=== PATIENT | female | born 1985 | race Caucasian/White ===

== ENCOUNTER 2019-07-09 09:41 | Outpatient (RCR) | payer MEDICAID | END 2019-10-07 | disposition home or self-care (01) | LOC: CARD 09:41 | PROVIDERS: ATTEND Nurse Practitioner | DX: R00.0 Tachycardia, unspecified (principal) | CPT/HCPCS: 93270 ==

== ENCOUNTER 2020-07-07 07:46 | Emergency (ER) | payer MEDICAID ==
[~2020-07-07] VITALS: Ht 162.6 cm; Wt 133.4 kg
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
[2020-07-07 08:43] LABS: CLARITY,URINE CLEAR; COLOR,URINE YELLOW; GLUCOSE, URINE (UA) NEGATIVE (NEGATIVE); PROTEIN,URINE TRACE (NEGATIVE)
[2020-07-07 08:44] LABS: BILIRUBIN,URINE NEGATIVE (NEGATIVE); CALCIUM OXALATE CRYSTALS,UR FEW /LPF; KETONES,URINE TRACE (NEGATIVE); LEUKOCYTE ESTERASE ,URINE NEGATIVE (NEGATIVE); NITRITE,URINE NEGATIVE (NEGATIVE)
[2020-07-07] MEDS ORDERED: ACETAMINOPHEN 500 MG TAB (TYLENOL) PO STA (08:48)
[2020-07-07 08:49] LABS: AMPHETAMINE SCREEN, URINE POSITIVE (NEGATIVE); BARBITURATE SCREEN URINE NEGATIVE (NEGATIVE); BENZODIAZEPINES SCREEN URINE POSITIVE (NEGATIVE); CANNABINOID SCREEN, URINE POSITIVE (NEGATIVE); COCAINE SCREEN URINE NEGATIVE (NEGATIVE); METHADONE STAT NEGATIVE (NEGATIVE); METHAMPHETAMINE SCREEN URINE S NEGATIVE (NEGATIVE); OPIATE SCREEN URINE NEGATIVE (NEGATIVE); OXYCODONE STAT POSITIVE (NEGATIVE); PROPOXYPHENE STAT NEGATIVE (NEGATIVE); TRICYCLIC ANTIDEPRESSANTS SCRE NEGATIVE (NEGATIVE)
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
[2020-07-07] MEDS ORDERED: CYCL10TA9 PO (10:08)
[2020-07-07 10:12] VITALS: BP 119/85
== END 2020-07-07 10:12 | disposition home or self-care (01) ==
LOC: EDUNIT# 07:46 → ER FS 07:47
DX: S06.0X0A Concussion without loss of consciousness, initial encounter (principal); S00.03XA Contusion of scalp, initial encounter; S60.221A Contusion of right hand, initial encounter; S00.83XA Contusion of other part of head, initial encounter; F17.210 Nicotine dependence, cigarettes, uncomplicated; Z88.5 Allergy status to narcotic agent; Z88.2 Allergy status to sulfonamides; Y04.8XXA Assault by other bodily force, initial encounter
CPT/HCPCS: 70450; 70486; 72125; 73060; 73090; 73130; 80306; 81000; 84703

== ENCOUNTER 2020-07-20 08:34 | Emergency (ER) | payer MEDICAID ==
[~2020-07-20] VITALS: Ht 162 cm; Wt 110.0 kg
[~2020-07-20 08:34] MED LIST: CYCL10TA9 PO
[2020-07-20 08:40] VITALS: BP 147/91
[2020-07-20] MEDS ORDERED: CETI10TA49 PO (08:56)
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
== END 2020-07-20 09:00 | disposition home or self-care (01) ==
LOC: EDUNIT# 08:34 → ER FS 08:37
DX: J02.9 Acute pharyngitis, unspecified (principal); F17.210 Nicotine dependence, cigarettes, uncomplicated; Z88.5 Allergy status to narcotic agent; Z88.2 Allergy status to sulfonamides
CPT/HCPCS: 99283

== ENCOUNTER 2020-08-06 06:37 | Emergency (ER) | payer MEDICAID ==
[~2020-08-06] VITALS: Ht 162.5 cm; Wt 110.1 kg
[~2020-08-06 06:37] MED LIST changes: +CETI10TA49 PO
[2020-08-06 06:49] VITALS: BP 152/72
--- NOTE | 2020-08-06 06:52 | ED Integumentary General ---
General Chief Complaint: Skin/Wound Problems Stated Complaint: LEFT LEG SWELLING Source: patient Exam Limitations: no limitations History of Present Illness Date Seen by Provider: Aug 06, 2020 Time Seen by Provider: 06:45 Initial Comments Fina is a 34-year-old female who presents to the emergency room today with a chief complaint of some swelling to her left lower extremity. Patient states that it has been going on for 2 or 3 days. She states that she was in [place] days ago and got a lot of "bug bites" to her lower extremities. She states she has been running a fever for the last 24 hours. She states she has had a mild cough for the last day. Denies any nasal congestion, earache, sore throat. Denies any coronavirus contacts. Patient denies any abdominal pain, burning with urination, diarrhea. She is primarily concerned about an area of swelling to the left anterior omalley. She denies any trauma to this area, falls. Patient is noted to have a 102 temp with a heart rate of 125. She adamantly declines any placement of IV, IV fluids or other major work-up. Patient states she took one of her left over antibiotics, she cannot remember what it was, earlier in the week. Patient states that she does have a history of methamphetamine use last was yesterday. Repeatedly complains that her leg "hurts". All other review of systems reviewed and negative except as stated above. Severity: moderate Location: extremities Possible Cause: insect bite Associated Symptoms: fever Allergies and Home Medications Allergies Coded Allergies: hydrocodone (Verified Allergy, Intermediate, Nausea, 07/07/20) Sulfa (Sulfonamide Antibiotics) (Verified Allergy, Unknown, Rash, 07/07/20) Home Medications Cephalexin 500 Mg Tablet, 500 MG PO QID Prescribed by: OSCAR MART on 08/06/20 0701 Cetirizine HCl 10 Mg Tablet, 10 MG PO DAILY Prescribed by: JAKE LAZCANO on 07/20/20 0856 Patient Home Medication List Home Medication List Reviewed: Yes Review of Systems Review of Systems Constitutional: chills, fever EENTM: no symptoms reported Respiratory: cough Cardiovascular: no symptoms reported Gastrointestinal: no symptoms reported, abdominal pain Genitourinary: no symptoms reported Musculoskeletal: other (leg pain and swelling) Skin: rash Psychiatric/Neurological: Anxiety All Other Systems Reviewed Negative Unless Noted: Yes Past Aqtxjax-Zhminf-Ojmfrb Hx Patient Social History Alcohol Beverage of Choice: Rum Drug of Choice: methamphetamine, marijuana Type Used: Cigarettes 2nd Hand Smoke Exposure: Yes Recent Foreign Travel: No Contact w/Someone Who Travel: No Recent Hopitalizations: No Seasonal Allergies Seasonal Allergies: No Past Medical History Surgeries: Yes Adenoidectomy, Tonsillectomy Respiratory: No Cardiac: No Neurological: No Reproductive Disorders: Yes Female Reproductive Disorders: Polycystic Ovarian Dis Genitourinary: No Gastrointestinal: No Musculoskeletal: No Endocrine: No HEENT: No Cancer: No Psychosocial: No Integumentary: No Blood Disorders: No Physical Exam Vital Signs Vital Signs - First Documented 08/06/20 06:49 Temp 39.2 Pulse 130 Resp 20 B/P (MAP) 152/72 (98) Pulse Ox 100 O2 Delivery Room Air Capillary Refill : General Appearance: WD/WN, mild distress HEENT: PERRL/EOMI Neck: full range of motion Cardiovascular: regular rate, rhythm, no murmur, tachycardia Respiratory: lungs clear, normal breath sounds, no respiratory distress, no accessory muscle use Gastrointestinal: normal bowel sounds, non tender, soft Extremities: normal range of motion, other (Patient has an area of contusion mid left omalley. Mildly swollen, patient has a significant number of lesions to the bilateral lower extremities consistent with insect bites. A few have mild amount of surrounding erythema. No fluctuance, no drainage noted. They are tender to touch.) Skin: normal color, diaphoresis, rash (as above, multiple areas that are excoriated to the bilateral upper extremities as well.. Purulent bases with surrounding erythema, largest diameter about 1.5cm. No active drainage noted.) Progress/Results/Core Measures Results/Orders My Orders Orders - OSCAR MART MD Ibuprofen Tablet (Motrin Tablet) (08/06/20 07:00) Cephalexin Capsule (Keflex Capsule) (08/06/20 07:00) Medications Given in ED Current Medications Medications Dose Ordered Sig/Quentin Route Start Time Stop Time Status Last Admin Dose Admin Ibuprofen 800 mg ONCE ONCE PO 08/06/20 07:00 08/06/20 07:01 DC 08/06/20 06:56 800 MG Vital Signs/I&O 08/06/20 06:49 Temp 39.2 Pulse 130 Resp 20 B/P (MAP) 152/72 (98) Pulse Ox 100 O2 Delivery Room Air Progress Progress Note : Time: 06:55 Progress Note 34-year-old female presents to the emergency room today with a chief complaint of swelling to her left lower omalley area. Patient denies any trauma. Evaluation today includes a physical exam. Patient endorses methamphetamine abuse. Her last use was yesterday she states. Patient has significant numbers of bug bites to her bilateral lower extremities. Some of these are erythematous. mild cellulitic changes are noted. Patient is quite tachycardic and febrile here in the emergency department. She declines any IV placement or IV fluids. Patient is advised it would be the quickest way to make her feel better and again she declines. She is treated here in the emergency department with 800 mg of ibuprofen and given Keflex p.o. She will be given a prescription for some Keflex and advised to take this until it is done. She verbalizes understanding, all questions are sought and answered and she is stable for discharge. Departure Impression Primary Impression: Fever Qualified Codes: R50.81 - Fever presenting with conditions classified elsewhere Additional Impression: Cellulitis of leg, left Disposition: 01 HOME, SELF-CARE Condition: Stable Departure-Patient Inst. Decision time for Depature: 06:58 Referrals: [facility] (PCP) Primary Care Physician JENSEN BAUM (Family) Primary Care Physician Patient Instructions: Bacterial Folliculitis (DC) Add. Discharge Instructions: Try not to scratch on the wounds of your legs. Take the antibiotics 4 times a day, until they are all gone. Use over the counter ibuprofen or tylenol as needed for pain and fever. Alternate every 4 to 6 hours. Return to the Emergency Department for any worsening symptoms, increased redness, swelling or pain. I have sent your prescription to the [facility]. It should be picked up today. All discharge instructions reviewed with patient and/or family. Voiced understanding. Scripts Cephalexin (Cephalexin) 500 Mg Tablet 500 MG PO QID, #40 TAB 0 Refills Prov: OSCAR MART MD 08/06/20 OSCAR MART MD Aug 06, 2020 06:52
[2020-08-06] MEDS ORDERED: CEPHALEXIN 250 MG (KEFLEX) CAP PO ONE (07:00)
[2020-08-06] MEDS ORDERED: IBUPROFEN 800 MG (MOTRIN) TAB PO ONE (07:00)
[2020-08-06] MEDS ORDERED: CEPH500T PO (07:01)
== END 2020-08-06 07:10 | disposition home or self-care (01) ==
LOC: EDUNIT# 06:37 → ER FS 06:40
DX: S80.861A Insect bite (nonvenomous), right lower leg, initial encounter (principal); S80.862A Insect bite (nonvenomous), left lower leg, initial encounter; L03.116 Cellulitis of left lower limb; R50.9 Fever, unspecified; R05 Cough; Z88.2 Allergy status to sulfonamides; Z88.5 Allergy status to narcotic agent; Z77.22 Contact with and (suspected) exposure to environmental tobacco smoke (acute) (chronic); W57.XXXA Bitten or stung by nonvenomous insect and other nonvenomous arthropods, initial encounter
CPT/HCPCS: 99283

== ENCOUNTER 2020-08-08 06:57 | Emergency (ER) | payer MEDICAID ==
[~2020-08-08] VITALS: Ht 162.5 cm; Wt 109.0 kg
[~2020-08-08 06:57] MED LIST changes: +CEPH500T PO
[2020-08-08] MEDS ORDERED: NS IV 1000 ML 1,000 ML IV STA (07:40)
[2020-08-08] MEDS ORDERED: ONDANSETRON 4 MG/2 ML (SDV) Z0FRAN IVP ONE (07:45)
[2020-08-08] MEDS ORDERED: KETOROLAC 60 MG/2 ML VIAL IV ONE (07:45)
[2020-08-08] MEDS ORDERED: VANCOMYCIN INJECTION 1,000 MG in NS (IVPB) 250 ML IV ONE (07:45)
--- NOTE | 2020-08-08 07:47 | ED Integumentary General ---
General Chief Complaint: Skin/Wound Problems Stated Complaint: (L) LEG PAIN Nursing Triage Note: Patient presents POV to ED limping reporting increased pain and redness in LLE. Pt is on Cephalexin from ED visit 08/06/20 Source: patient, RN/MD, RN notes reviewed, old records Exam Limitations: no limitations History of Present Illness Date Seen by Provider: Aug 08, 2020 Time Seen by Provider: 07:20 Initial Comments This patient is a 34-year-old female presents to the emergency department complaining of redness and swelling to the left lower leg. Patient was seen just a few days ago in the emergency department complaining of sores all over body was diagnosed with folliculitis given a prescription for Keflex. Patient states that redness and swelling to her left leg is Worse since then and now having pain. Patient has multiple lesions throughout her skin extending from her lower extremities all interfaces around her mouth and lips. Discussed at length with patient about history she admits that she uses methamphetamine quite often this consistent with the type of lesions that she has on her skin. We will do medical evaluation treatment is needed. We'll give patient an IV and give her her vancomycin IV. Timing/Duration: getting worse, changing over time Severity: moderate Location: face, torso, hands, extremities Possible Cause: other Associated Symptoms: blisters, fever Allergies and Home Medications Allergies Coded Allergies: hydrocodone (Verified Allergy, Intermediate, Nausea, 07/07/20) Sulfa (Sulfonamide Antibiotics) (Verified Allergy, Unknown, Rash, 07/07/20) Home Medications Cephalexin 500 Mg Tablet, 500 MG PO QID Prescribed by: OSCAR MART on 08/06/20 0701 Cetirizine HCl 10 Mg Tablet, 10 MG PO DAILY Prescribed by: JAKE LAZCANO on 07/20/20 0856 Patient Home Medication List Home Medication List Reviewed: Yes Review of Systems Review of Systems Constitutional: No no symptoms reported, No see HPI, No chills, No diaphoresis, No dizziness; fever; No malaise, No weakness, No weight gain, No weight loss, No other EENTM: mouth pain, mouth swelling, other Respiratory: No no symptoms reported, No see HPI, No cough, No dyspnea on exertion, No hemoptysis, No orthopnea, No phlegm, No short of breath, No s tridor, No wheezing, No other Cardiovascular: No no symptoms reported, No see HPI, No chest pain, No edema, No Hx of Intervention, No palpitations, No syncope, No vascular heart diseas, No other Gastrointestinal: No RUQ, No LUQ, No RLQ, No LLQ, No no symptoms reported, No see HPI, No abdominal pain, No constipation, No diarrhea, No dysphagia, No hematemesis, No heartburn, No jaundice, No loss of appetite, No melena, No nausea, No vomiting, No other Musculoskeletal: see HPI, joint swelling, muscle pain Skin: change in color, lesions All Other Systems Reviewed Negative Unless Noted: Yes Past Tkdzopu-Rsigeh-Duuypk Hx Patient Social History Alcohol Beverage of Choice: Rum Drug of Choice: Meth Type Used: Cigarettes 2nd Hand Smoke Exposure: Yes Recent Foreign Travel: No Contact w/Someone Who Travel: No Recent Infectious Disease Expo: No Recent Hopitalizations: No Physical Abuse: No Sexual Abuse: No Mistreated: No Fear: No Seasonal Allergies Seasonal Allergies: No Past Medical History Surgeries: Yes Adenoidectomy, Tonsillectomy Respiratory: No Cardiac: No Neurological: No Reproductive Disorders: Yes Female Reproductive Disorders: Polycystic Ovarian Dis Genitourinary: No Gastrointestinal: No Musculoskeletal: No Endocrine: No HEENT: No Cancer: No Psychosocial: No Integumentary: No Blood Disorders: No Physical Exam Vital Signs Vital Signs - First Documented 08/08/20 07:15 Temp 36.9 Pulse 108 Resp 20 B/P (MAP) 120/69 (86) Pulse Ox 99 O2 Delivery Room Air Capillary Refill : Less Than 3 Seconds General Appearance: WD/WN, no apparent distress HEENT: PERRL/EOMI, normal ENT inspection, TMs normal, other (lesions to the lips similar to use to medical tightness versus fever blisters. But has similar lesions throughout the skin the face consistent with methamphetamine) Neck: non-tender, full range of motion, supple, normal inspection Cardiovascular: normal peripheral pulses, regular rate, rhythm, no edema, no gallop, no JVD, no murmur Respiratory: chest non-tender, lungs clear, normal breath sounds, no respiratory distress, no accessory muscle use Gastrointestinal: normal bowel sounds, non tender, soft, no organomegaly, no pulsatile mass Extremities: normal range of motion, no calf tenderness, normal capillary refill, pelvis stable, inflammation, swelling, other (lesions to both lower extremities bilaterally however left lower leg redness and swelling consistent with cellulitis.) Skin: warm/dry Lymphatic: no adenopathy Progress/Results/Core Measures Results/Orders Lab Results Laboratory Tests Test 08/08/20 07:53 08/08/20 08:03 Range/Units Urine Color BROWN H Urine Clarity SL CLOUDY Urine pH 6.5 5-9 Urine Specific [place] 1.025 H 1.016-1.022 Urine Protein 1+ H NEGATIVE Urine Glucose (UA) TRACE H NEGATIVE Urine Ketones TRACE H NEGATIVE Urine Nitrite NEGATIVE NEGATIVE Urine Bilirubin 2+ H NEGATIVE Urine Urobilinogen 4.0 < = 1.0 MG/DL Urine Leukocyte Esterase TRACE H NEGATIVE Urine RBC (Auto) NEGATIVE NEGATIVE Urine RBC NONE /HPF Urine WBC 5-10 H /HPF Urine Squamous Epithelial Cells 10-25 H /HPF Urine Crystals NONE /LPF Urine Bacteria FEW H /HPF Urine Casts NONE /LPF Urine Mucus SMALL H /LPF Urine Yeast FEW H /HPF Urine Culture Indicated YES Urine Opiates Screen NEGATIVE NEGATIVE Urine Oxycodone Screen NEGATIVE NEGATIVE Urine Methadone Screen NEGATIVE NEGATIVE Urine Propoxyphene Screen NEGATIVE NEGATIVE Urine Barbiturates Screen NEGATIVE NEGATIVE Ur Tricyclic Antidepressants Screen NEGATIVE NEGATIVE Urine Phencyclidine Screen NEGATIVE NEGATIVE Urine Amphetamines Screen POSITIVE H NEGATIVE Urine Methamphetamines Screen POSITIVE H NEGATIVE Urine Benzodiazepines Screen POSITIVE H NEGATIVE Urine Cocaine Screen NEGATIVE NEGATIVE Urine Cannabinoids Screen POSITIVE H NEGATIVE White Blood Count 13.2 H 4.3-11.0 10^3/uL Red Blood Count 4.73 4.35-5.85 10^6/uL Hemoglobin 13.1 11.5-16.0 G/DL Hematocrit 41 35-52 % Mean Corpuscular Volume 86 80-99 FL Mean Corpuscular Hemoglobin 28 25-34 PG Mean Corpuscular Hemoglobin Concent 32 32-36 G/DL Red Cell Distribution Width 13.4 10.0-14.5 % Platelet Count 310 130-400 10^3/uL Mean Platelet Volume 9.4 7.4-10.4 FL Immature Granulocyte % (Auto) 0 % Neutrophils (%) (Auto) 84 H 42-75 % Lymphocytes (%) (Auto) 8 L 12-44 % Monocytes (%) (Auto) 7 0-12 % Eosinophils (%) (Auto) 1 0-10 % Basophils (%) (Auto) 0 0-10 % Neutrophils # (Auto) 11.0 H 1.8-7.8 X 10^3 Lymphocytes # (Auto) 1.1 1.0-4.0 X 10^3 Monocytes # (Auto) 0.9 0.0-1.0 X 10^3 Eosinophils # (Auto) 0.1 0.0-0.3 10^3/uL Basophils # (Auto) 0.0 0.0-0.1 10^3/uL Immature Granulocyte # (Auto) 0.1 0.0-0.1 10^3/uL My Orders Orders - BRITT NAVA MD Ed Iv/Invasive Line Start (08/08/20 07:40) Comprehensive Metabolic Panel (08/08/20 07:40) Cbc With Automated Diff (08/08/20 07:40) Drug Screen Stat (Urine) (08/08/20 07:40) Urinalysis (08/08/20 07:40) Lactic Acid Analyzer (08/08/20 07:40) Blood Culture (08/08/20 07:40) Ns Iv 1000 Ml (Sodium Chloride 0.9%) (08/08/20 07:40) Vancomycin Injection (Vancomycin Injecti (08/08/20 07:45) Ketorolac Injection (Toradol Injection) (08/08/20 07:45) Ondansetron Injection (Zofran Injectio (08/08/20 07:45) Urine Culture (08/08/20 07:53) Manual Differential (08/08/20 08:03) Blood Culture (08/08/20 08:13) Medications Given in ED Current Medications Medications Dose Ordered Sig/Quentin Route Start Time Stop Time Status Last Admin Dose Admin Ketorolac Tromethamine 15 mg ONCE ONCE IV 08/08/20 07:45 08/08/20 07:46 DC 08/08/20 08:14 15 MG Ondansetron HCl 4 mg ONCE ONCE IVP 08/08/20 07:45 08/08/20 07:46 DC 08/08/20 08:14 4 MG Vancomycin HCl 1000 mg/Sodium Chloride 250 ml @ 250 mls/hr ONCE ONCE IV 08/08/20 07:45 11 08:44 08/08/20 08:14 250 MLS/HR Vital Signs/I&O 11/10/20 07:15 Temp 36.9 Pulse 108 Resp 20 B/P (MAP) 120/69 (86) Pulse Ox 99 O2 Delivery Room Air Blood Pressure Mean: 86 Progress Progress Note : Time: 08:41 Progress Note Cellulitis the lower extremity has been outlined. Patient is received 1 g of vancomycin. We will change patient's antibiotics to clindamycin. Patient also be given Bactroban ointment. Patient is instructed to stop using methamphetamine. Patient states understanding. Encourage by mouth fluids. Stop using drugs. He medications as instructed. Follow-up with your PCP in 2-3 days. Departure Impression Primary Impression: Cellulitis Additional Impressions: Methamphetamine use disorder, moderate Folliculitis Disposition: 01 HOME, SELF-CARE Condition: Stable Departure-Patient Inst. Decision time for Depature: 08:42 Referrals: [facility]/ (PCP) Primary Care Physician JENSEN BAUM (Family) Primary Care Physician Patient Instructions: Cellulitis (Skin Infection), Adult (DC), Bacterial Folliculitis (DC), Meth Mouth Add. Discharge Instructions: Encourage by mouth fluids. Stop using drugs. He medications as instructed. Follow-up with your PCP in 2-3 days. All discharge instructions reviewed with patient and/or family. Voiced understanding. Scripts Mupirocin (Mupirocin) 22 Gm Oint...g. 22 GM TP TID, #1 TUBE 0 Refills Prov: BRITT NAVA MD 08/08/20 Clindamycin HCl (Clindamycin HCl) 150 Mg Capsule 150 MG PO QID, #40 CAP 0 Refills Prov: BRITT NAVA MD 08/08/20 BRITT NAVA MD Aug 08, 2020 07:47
[2020-08-08 08:09] LABS: AMPHETAMINE SCREEN, URINE POSITIVE (NEGATIVE); BARBITURATE SCREEN URINE NEGATIVE (NEGATIVE); BENZODIAZEPINES SCREEN URINE POSITIVE (NEGATIVE); CANNABINOID SCREEN, URINE POSITIVE (NEGATIVE); COCAINE SCREEN URINE NEGATIVE (NEGATIVE); METHADONE STAT NEGATIVE (NEGATIVE); METHAMPHETAMINE SCREEN URINE S POSITIVE (NEGATIVE); OPIATE SCREEN URINE NEGATIVE (NEGATIVE); OXYCODONE STAT NEGATIVE (NEGATIVE); PROPOXYPHENE STAT NEGATIVE (NEGATIVE); TRICYCLIC ANTIDEPRESSANTS SCRE NEGATIVE (NEGATIVE)
[2020-08-08 08:10] LABS: CLARITY,URINE SL CLOUDY; COLOR,URINE BROWN; GLUCOSE, URINE (UA) TRACE (NEGATIVE); KETONES,URINE TRACE (NEGATIVE); NITRITE,URINE NEGATIVE (NEGATIVE); PH,URINE 6.5 (5-9); PROTEIN,URINE 1+ (NEGATIVE)
[2020-08-08 08:11] LABS: BACTERIA,URINE FEW /HPF; BILIRUBIN,URINE 2+ (NEGATIVE); LEUKOCYTE ESTERASE ,URINE TRACE (NEGATIVE); YEAST,URINE FEW /HPF
--- NOTE | 2020-08-08 08:15 | NUR ---
Outlined area of cellulitis with skin marker.
[2020-08-08 08:21] LABS: BASOPHILS % (AUTO) 0 % (0-10); EOSINOPHILS # (AUTO) 0.1 10^3/uL (0.0-0.3); EOSINOPHILS % (AUTO) 1 % (0-10); HEMATOCRIT 41 % (35-52); HEMOGLOBIN 13.1 G/DL (11.5-16.0); LYMPHOCYTES # (AUTO) 1.1 X 10^3 (1.0-4.0); LYMPHOCYTES % (AUTO) 8 % (12-44); MEAN CORPUSCULAR HEMOGLOBIN 28 PG (25-34); MEAN CORPUSCULAR HGB CONC 32 G/DL (32-36); MEAN CORPUSCULAR VOLUME 86 FL (80-99); MEAN PLATELET VOLUME 9.4 FL (7.4-10.4); MONOCYTES # (AUTO) 0.9 X 10^3 (0.0-1.0); MONOCYTES % (AUTO) 7 % (0-12); NEUTROPHILS % (AUTO) 84 % (42-75); PLATELET COUNT 310 10^3/uL (130-400); WHITE BLOOD COUNT 13.2 10^3/uL (4.3-11.0)
[2020-08-08 08:43] LABS: CARBON DIOXIDE 23 MMOL/L (21-32); CHLORIDE 104 MMOL/L (98-107); POTASSIUM 3.3 MMOL/L (3.6-5.0); SODIUM 141 MMOL/L (135-145)
[2020-08-08 08:44] LABS: ALANINE AMINOTRANSFERASE 24 U/L (0-55); ALBUMIN 3.9 GM/DL (3.2-4.5); ALKALINE PHOSPHATASE 125 U/L (40-136); BILIRUBIN,TOTAL 0.4 MG/DL (0.1-1.0); BUN/CREATININE RATIO 13; CALCIUM 9.8 MG/DL (8.5-10.1); CREATININE SERUM 0.63 MG/DL (0.60-1.30); GFR ESTIMATED > 60; GLUCOSE 108 MG/DL (70-105); TOTAL PROTEIN 7.7 GM/DL (6.4-8.2)
[2020-08-08] MEDS ORDERED: CLIN150C17 PO (08:44)
[2020-08-08] MEDS ORDERED: MUPI22OI2 TP (08:44)
[2020-08-08 09:20] VITALS: BP 118/65
[2020-08-08 09:23] LABS: BAND NEUTROPHILS 11 %; BASOPHILS % (MANUAL) 0 %; EOSINOPHILS % (MANUAL) 0 %; LYMPHOCYTES % (MANUAL) 13 %; MONOCYTES % (MANUAL) 3 %; NEUTROPHILS % (MANUAL) 73 %; RBC MORPH NORMAL
== END 2020-08-08 09:20 | disposition home or self-care (01) ==
LOC: EDUNIT# 06:57 → ER FS 07:00
DX: L03.116 Cellulitis of left lower limb (principal); L73.9 Follicular disorder, unspecified; F15.90 Other stimulant use, unspecified, uncomplicated; Z77.22 Contact with and (suspected) exposure to environmental tobacco smoke (acute) (chronic); Z88.5 Allergy status to narcotic agent; Z88.2 Allergy status to sulfonamides
CPT/HCPCS: 36415; 80053; 80306; 81000; 83605; 85007; 85027; 87040; 87088

== ENCOUNTER 2020-08-11 18:16 | Inpatient (IN) | payer MEDICAID ==
[~2020-08-11] VITALS: Ht 162.6 cm; Wt 110.3 kg
[~2020-08-11 18:16] MED LIST changes: +CLIN150C17 PO; +MUPI22OI2 TP
--- NOTE | 2020-08-11 18:39 | ED General ---
General Chief Complaint: Lower Extremity Stated Complaint: LT LEG PAIN Nursing Triage Note: Patient reports she has been seen twice in the ED for cellulitis of her left lower leg. States she has been taking clindamycin since 08/08/20 but that her pain is not getting any better. Nursing Sepsis Screen: No Definite Risk History of Present Illness Date Seen by Provider: Aug 11, 2020 Time Seen by Provider: 18:39 Initial Comments Patient presenting to the emergency department for evaluation of wound to her left lower extremity that has been going on since approximately the sixth of this month as she was out in the [facility] and had some bug bites. She was seen in the emergency department 2 days later on the and prescribed Keflex as she was tachycardic and febrile but did not want any further workup or IV medications. She said the redness swelling and pain was worse and came back 2 days later and had evaluation and was given 1 dose of IV vancomycin and sent sachi e on clindamycin after having an elevated white blood cell count and lactic acid. She says that the pain is much worse now and she cannot tolerate the pain any longer. I looked at a picture of the outline of the wound on the and it appears that the cellulitis is receding inferiorly about possibly getting worse laterally and superiorly and also appears to be a more intense dark red at this time. She says that she does not do any IV drugs and did not inject in this area. She is quite anxious and keeps yelling about the amount of pain she is in. Allergies and Home Medications Allergies Coded Allergies: hydrocodone (Verified Allergy, Intermediate, Nausea, 07/07/20) Sulfa (Sulfonamide Antibiotics) (Verified Allergy, Unknown, Rash, 07/07/20) Home Medications Cephalexin 500 Mg Tablet, 500 MG PO QID Prescribed by: OSCAR MART on 08/06/20 0701 Cetirizine HCl 10 Mg Tablet, 10 MG PO DAILY Prescribed by: JAKE LAZCANO on 07/20/20 0856 Clindamycin HCl 150 Mg Capsule, 150 MG PO QID Prescribed by: BRITT NAVA on 08/08/20 0844 Mupirocin 22 Gm Oint...g., 22 GM TP TID Prescribed by: BRITT NAVA on 08/08/20 0844 Patient Home Medication List Home Medication List Reviewed: Yes Review of Systems Review of Systems Constitutional: no symptoms reported, fever EENTM: no symptoms reported Respiratory: no symptoms reported Cardiovascular: no symptoms reported Gastrointestinal: no symptoms reported Musculoskeletal: no symptoms reported Skin: other (pain, swelling, redness) Psychiatric/Neurological: No Symptoms Reported All Other Systems Reviewed Negative Unless Noted: Yes Past Phkczrh-Vrortu-Hjlbjt Hx Patient Social History Alcohol Use: Denies Use Number of Drinks Today: DD Alcohol Beverage of Choice: Rum Recreational Drug Use: Yes Drug of Choice: Meth Smoking Status: Current Everyday Smoker Type Used: Cigarettes 2nd Hand Smoke Exposure: Yes Recent Foreign Travel: No Contact w/Someone Who Travel: No Recent Infectious Disease Expo: No Recent Hopitalizations: No Physical Abuse: No Sexual Abuse: No Mistreated: No Fear: No Seasonal Allergies Seasonal Allergies: No Past Medical History Surgeries: Yes Adenoidectomy, Tonsillectomy Respiratory: No Cardiac: No Neurological: No Last Menstrual Period: Jul 11, 2020 Reproductive Disorders: Yes Female Reproductive Disorders: Polycystic Ovarian Dis Genitourinary: No Gastrointestinal: No Musculoskeletal: No Endocrine: No HEENT: No Cancer: No Psychosocial: No Integumentary: No Blood Disorders: No Physical Exam Vital Signs Vital Signs - First Documented 08/11/20 18:23 Temp 36.1 Pulse 131 Resp 20 B/P (MAP) 161/94 (116) Pulse Ox 97 O2 Delivery Room Air Capillary Refill : Less Than 3 Seconds Height, Weight, BMI Height: '" Weight: lbs. oz. kg; 41.00 BMI Method: General Appearance: No Apparent Distress, WD/WN HEENT: PERRL/EOMI Neck: Supple Respiratory: No Respiratory Distress Cardiovascular: Regular Rate, Rhythm Gastrointestinal: Non Tender, Soft Extremity: Normal Capillary Refill Neurologic/Psychiatric: Alert, Oriented x3 Skin: Other (erythema warmth and significant tenderness to palpation of the left lower extremity over the omalley and it goes laterally but is not circumferential. Anteriorly does feel as if there could be some induration but no definite fluid collection palpated.) Focused Exam Lactate Level 08/11/20 18:50: Lactic Acid Level 2.06*H Lactic Acid Level Laboratory Tests Test 08/11/20 18:50 Lactic Acid Level 2.06 MMOL/L (0.50-2.00) *H Progress/Results/Core Measures Suspected Sepsis Recent Fever Within 48 Hours: No Infection Criteria Present: Documented Infection New/Unexplained Altered Menta: No Sepsis Screen: No Definite Risk SIRS Temperature: Pulse: 131 Respiratory Rate: 20 Laboratory Tests 08/11/20 18:50: White Blood Count 12.8H Blood Pressure 161 /94 Mean: 116 08/11/20 18:50: Lactic Acid Level 2.06*H Laboratory Tests 08/11/20 18:50: Creatinine 0.61, Platelet Count 599H, Total Bilirubin 0.4 Results/Orders Lab Results Laboratory Tests Test 08/11/20 18:50 Range/Units White Blood Count 12.8 H 4.3-11.0 10^3/uL Red Blood Count 4.74 4.35-5.85 10^6/uL Hemoglobin 13.2 11.5-16.0 G/DL Hematocrit 40 35-52 % Mean Corpuscular Volume 85 80-99 FL Mean Corpuscular Hemoglobin 28 25-34 PG Mean Corpuscular Hemoglobin Concent 33 32-36 G/DL Red Cell Distribution Width 13.2 10.0-14.5 % Platelet Count 599 H 130-400 10^3/uL Mean Platelet Volume 9.0 7.4-10.4 FL Immature Granulocyte % (Auto) 1 % Neutrophils (%) (Auto) 79 H 42-75 % Lymphocytes (%) (Auto) 14 12-44 % Monocytes (%) (Auto) 6 0-12 % Eosinophils (%) (Auto) 0 0-10 % Basophils (%) (Auto) 0 0-10 % Neutrophils # (Auto) 10.2 H 1.8-7.8 X 10^3 Lymphocytes # (Auto) 1.7 1.0-4.0 X 10^3 Monocytes # (Auto) 0.8 0.0-1.0 X 10^3 Eosinophils # (Auto) 0.1 0.0-0.3 10^3/uL Basophils # (Auto) 0.0 0.0-0.1 10^3/uL Immature Granulocyte # (Auto) 0.1 0.0-0.1 10^3/uL Sodium Level 134 L 135-145 MMOL/L Potassium Level 3.5 L 3.6-5.0 MMOL/L Chloride Level 98 98-107 MMOL/L Carbon Dioxide Level 21 21-32 MMOL/L Anion Gap 15 H 5-14 MMOL/L Blood Urea Nitrogen 11 7-18 MG/DL Creatinine 0.61 0.60-1.30 MG/DL Estimat Glomerular Filtration Rate > 60 BUN/Creatinine Ratio 18 Glucose Level 186 H 70-105 MG/DL Lactic Acid Level 2.06 *H 0.50-2.00 MMOL/L Calcium Level 9.1 8.5-10.1 MG/DL Corrected Calcium 9.4 8.5-10.1 MG/DL Total Bilirubin 0.4 0.1-1.0 MG/DL Aspartate Amino Transf (AST/SGOT) 13 5-34 U/L Alanine Aminotransferase (ALT/SGPT) 17 0-55 U/L Alkaline Phosphatase 104 40-136 U/L Total Protein 8.3 H 6.4-8.2 GM/DL Albumin 3.6 3.2-4.5 GM/DL My Orders Orders - JOANNE MARCANO DO Cbc With Automated Diff (08/11/20 18:39) Comprehensive Metabolic Panel (08/11/20 18:39) Blood Culture (08/11/20 18:39) Lactic Acid Analyzer (08/11/20 18:39) Piperacillin Sodium/Tazobactam (Zosyn Vi (08/11/20 18:45) Vancomycin Injection (Vancomycin Injecti (08/11/20 18:45) Blood Culture (08/11/20 18:45) Medications Given in ED Current Medications Medications Dose Ordered Sig/Quentin Route Start Time Stop Time Status Last Admin Dose Admin Piperacillin Sod/ Tazobactam Sod 4.5 gm/Sodium Chloride 100 ml @ 200 mls/hr ONCE ONCE IV 08/11/20 18:45 08/11/20 19:14 DC 08/11/20 19:37 200 MLS/HR Vital Signs/I&O 08/11/20 18:23 Temp 36.1 Pulse 131 Resp 20 B/P (MAP) 161/94 (116) Pulse Ox 97 O2 Delivery Room Air Capillary Refill : Less Than 3 Seconds Blood Pressure Mean: 116 Progress Note : Progress Note I discussed doing an incision and drainage with the patient however she was relu cta to do so. I think this further imaging such as an MRI or ultrasound would be warranted however I cannot acquire those images here in this freestanding emergency department. Given she may be failing outpatient treatment will plan on starting IV antibiotics here and having her transferred to Issue. Patient meets sepsis criteria with tachycardia and leukocytosis and she does have mild like a stick acidosis as well but does not meet severe sepsis criteria. Given her failure of outpatient treatment will plan on admission for further observation and treatment. Patient accepted by Dr. Michele. Departure Impression Primary Impression: Cellulitis of leg, left Additional Impressions: Failure of outpatient treatment Sepsis Lactic acidosis Disposition: ADMITTED INPATIENT Condition: Improved Transfer Transfer Reason: Exceeds level of care Transfer Facility: [facility] Departure-Patient Inst. Referrals: [facility] (PCP) Primary Care Physician JENSEN BAUM (Family) Primary Care Physician JOANNE MARCANO DO Aug 11, 2020 18:39
[2020-08-11] MEDS ORDERED: PIPERACILLIN SODIUM/TAZOBACTAM 4.5 GM in NS (IVPB) 100 ML IV ONE (18:45)
[2020-08-11] MEDS ORDERED: VANCOMYCIN INJECTION 1,000 MG in NS (IVPB) 250 ML IV ONE (18:45)
[2020-08-11 19:11] LABS: BASOPHILS % (AUTO) 0 % (0-10); EOSINOPHILS % (AUTO) 0 % (0-10); HEMATOCRIT 40 % (35-52); HEMOGLOBIN 13.2 G/DL (11.5-16.0); LYMPHOCYTES % (AUTO) 14 % (12-44); MEAN CORPUSCULAR HEMOGLOBIN 28 PG (25-34); MEAN CORPUSCULAR HGB CONC 33 G/DL (32-36); MEAN CORPUSCULAR VOLUME 85 FL (80-99); MONOCYTES % (AUTO) 6 % (0-12); NEUTROPHILS # (AUTO) 10.2 X 10^3 (1.8-7.8); NEUTROPHILS % (AUTO) 79 % (42-75); PLATELET COUNT 599 10^3/uL (130-400); WHITE BLOOD COUNT 12.8 10^3/uL (4.3-11.0)
[2020-08-11 19:12] LABS: EOSINOPHILS # (AUTO) 0.1 10^3/uL (0.0-0.3); LYMPHOCYTES # (AUTO) 1.7 X 10^3 (1.0-4.0); MONOCYTES # (AUTO) 0.8 X 10^3 (0.0-1.0)
[2020-08-11 19:34] LABS: ALANINE AMINOTRANSFERASE 17 U/L (0-55); ALKALINE PHOSPHATASE 104 U/L (40-136); BILIRUBIN,TOTAL 0.4 MG/DL (0.1-1.0); BUN/CREATININE RATIO 18; CALCIUM 9.1 MG/DL (8.5-10.1); CARBON DIOXIDE 21 MMOL/L (21-32); CHLORIDE 98 MMOL/L (98-107); CREATININE SERUM 0.61 MG/DL (0.60-1.30); GFR ESTIMATED > 60; GLUCOSE 186 MG/DL (70-105); POTASSIUM 3.5 MMOL/L (3.6-5.0); SODIUM 134 MMOL/L (135-145); TOTAL PROTEIN 8.3 GM/DL (6.4-8.2)
[2020-08-11 19:35] LABS: ALBUMIN 3.6 GM/DL (3.2-4.5)
--- NOTE | 2020-08-11 19:43 | NUR ---
pt requesting warm blanket, resting on stretcher, no distress noted.
[2020-08-11] MEDS ORDERED: NS IV 1000 ML 1,000 ML IV SCH (21:00)
[2020-08-11 23:00] VITALS: BP 111/63
[2020-08-11] MEDS ORDERED: CATHETER FLUSH 10 ML SYR IV PRN (23:30)
[2020-08-11] MEDS ORDERED: ACETAMINOPHEN 325 MG TABLET PO PRN (23:30)
--- NOTE | 2020-08-11 23:30 | NUR ---
2202-THIS RN RECEIVED REPORT FROM [facility] AT [facility] 2300-PT ARRIVED [facility] JATINDER ESCOBAR admitted to room 406-1, with an admitting diagnosis of CELLULITIS, SEPSIS, on 08/11/20 from ED via [facility], accompanied by [facility].JATINDER ESCOBAR introduced to surroundings, call light, bed controls, phone, TV, temperature control, lights, meal times, smoking policy, visitor policy, side rail policy, bathrooms and showers. Patient Rights given to patient in the handbook. JATINDER ESCOBAR verbalizes understanding that [facility] is not responsible for the loss or damage to any personal effects or valuables that are kept in the patients possessions during their hospitalization. Patient and/or family were informed about the Rapid Response Team and its purpose.
[2020-08-12] MEDS: IBUPROFEN 800 MG (MOTRIN) TAB PO PRN ×3 (00:32→20:28)
[2020-08-12] MEDS ORDERED: PIPERACILLIN/TAZO 4.5 GM VIAL (ZOSYN) IV ONE (01:30)
[2020-08-12] MEDS ORDERED: NS (IVPB) 100 ML ONE (01:30)
[2020-08-12] MEDS: PIPERACILLIN/TAZO 4.5 GM/NS 100 ML IV SCH ×6 (01:42→16:32)
[2020-08-12 03:54] VITALS: BP 110/62
[2020-08-12 05:02] LABS: BASOPHILS % (AUTO) 0 % (0-10); EOSINOPHILS # (AUTO) 0.1 10^3/uL (0.0-0.3); EOSINOPHILS % (AUTO) 1 % (0-10); HEMATOCRIT 36 % (35-52); HEMOGLOBIN 11.2 g/dL (11.5-16.0); LYMPHOCYTES # (AUTO) 1.6 10^3/uL (1.0-4.0); LYMPHOCYTES % (AUTO) 20 % (12-44); MEAN CORPUSCULAR HEMOGLOBIN 27 pg (25-34); MEAN CORPUSCULAR HGB CONC 31 g/dL (32-36); MEAN CORPUSCULAR VOLUME 87 fL (80-99); MEAN PLATELET VOLUME 8.8 fL (9.0-12.2); MONOCYTES # (AUTO) 0.9 10^3/uL (0.0-1.0); MONOCYTES % (AUTO) 11 % (0-12); NEUTROPHILS # (AUTO) 5.5 10^3/uL (1.8-7.8); NEUTROPHILS % (AUTO) 68 % (42-75); PLATELET COUNT 385 10^3/uL (130-400)
[2020-08-12 05:15] LABS: ALBUMIN 3.2 GM/DL (3.2-4.5); CHLORIDE 103 MMOL/L (98-107); POTASSIUM 3.5 MMOL/L (3.6-5.0); SODIUM 138 MMOL/L (135-145)
[2020-08-12 05:16] LABS: CALCIUM 8.7 MG/DL (8.5-10.1)
[2020-08-12 05:17] LABS: GLUCOSE 96 MG/DL (70-105); TOTAL PROTEIN 7.1 GM/DL (6.4-8.2)
[2020-08-12 05:18] LABS: CARBON DIOXIDE 24 MMOL/L (21-32)
[2020-08-12 05:19] LABS: BILIRUBIN,TOTAL 0.4 MG/DL (0.1-1.0)
[2020-08-12 05:21] LABS: ALKALINE PHOSPHATASE 73 U/L (40-136); CREATININE SERUM 0.64 MG/DL (0.60-1.30); GFR ESTIMATED > 60
[2020-08-12 05:22] LABS: BUN/CREATININE RATIO 16
[2020-08-12 05:24] LABS: ALANINE AMINOTRANSFERASE 14 U/L (0-55)
[2020-08-12 05:34] LABS: VANCOMYCIN,TROUGH 3.8 UG/ML (10.0-20.0)
--- NOTE | 2020-08-12 07:31 | NUR ---
DR. DOE NOTIFIED OF CONSULT
--- NOTE | 2020-08-12 07:42 | NUR ---
THIS RN CALLED DR. HANKINS ABOUT PT DVT PREVENTION-ORDER TO HAVE PHARMACY DOSE LOVENOX PER PT WEIGHT-ORDER PLACED & THIS RN NOTIFIED ONCOMING ELLIS BANERJEE OF THE ORDER
[2020-08-12 08:02] VITALS: BP 149/75
[2020-08-12] MEDS: ENOXAPARIN 40 MG/0.4 ML (LOVENOX) SYR SQ SCH ×2 (09:01→20:28)
[2020-08-12] MEDS ORDERED: VANCOMYCIN INJECTION 0.1 MG in NS (IVPB) 250 ML IV SCH (11:45)
--- NOTE | 2020-08-12 11:59 | History & Physical-Hospitalist ---
History of Present Illness HPI/Chief Complaint This is a 34-year-old white female who had head cellulitis of her left leg for the last several days and had failed outpatient antibiotic treatment. The patient was admitted with tachycardia elevated fever and a leukocytosis and elevated lactic acid consistent with the diagnosis of sepsis. The patient at the time of my interview this morning has continued quite severe left leg pain erythema and swelling but has become afebrile with improvement in her white count. The patient does have a history of recent methamphetamine use but is adamant that she is going to quit Source: patient Exam Limitations: no limitations Date Seen 08/12/20 Time Seen by a Provider: 11:00 Attending Physician Dawn Hankins MD [facility] Referring Physician Date of Admission Aug 11, 2020 at 19:53 Home Medications & Allergies Home Medications Reviewed patient Home Medication Reconciliation performed by pharmacy medication reconciliations survey and mapping technician and/or nursing. Patients Allergies have been reviewed. Allergies Allergies Coded Allergies hydrocodone (Verified Allergy, Intermediate, Nausea, 07/07/20) Sulfa (Sulfonamide Antibiotics) (Verified Allergy, Unknown, Rash, 07/07/20) Past Onhzwgz-Urwgxl-Qgjmfg Hx Past Med/Social Hx: Reviewed Nursing Past Med/Soc Hx Patient Social History Marrital Status: single Employed/Student: employed Alcohol Use: Denies Use Alcohol Beverage of Choice: Rum Recreational Drug Use: Yes Drug of Choice: Meth Smoking Status: Current Everyday Smoker Type Used: Cigarettes 2nd Hand Smoke Exposure: Yes Recent Foreign Travel: No Contact w/other who traveled: No Recent Hopitalizations: No Recent Infectious Disease Expo: No Seasonal Allergies Seasonal Allergies: No Past Medical History Surgeries: Adenoidectomy, Tonsillectomy Reproductive: Yes Female Reproductive Disorders: Polycystic Ovarian Dis History of Blood Disorders: No Family History FH: anemia 19 MOTHER Hodgkin's lymphoma G8 BROTHER Kidney disease 19 FATHER Uterine fibroid 19 MOTHER Uterine fibroid 19 MOTHER Review of Systems Constitutional: see HPI, fever, other (Leg pain) EENTM: no symptoms reported Respiratory: no symptoms reported Gastrointestinal: no symptoms reported Genitourinary: no symptoms reported Musculoskeletal: muscle pain Skin: change in color, rash Psychiatric/Neurological: No Symptoms Reported Physical Exam Physical Exam Vital Signs Vital Signs - First Documented 08/11/20 18:23 Temp 36.1 Pulse 131 Resp 20 B/P (MAP) 161/94 (116) Pulse Ox 97 O2 Delivery Room Air Capillary Refill : Less Than 3 Seconds Height, Weight, BMI Height: '" Weight: lbs. oz. kg; 41.71 BMI Method: General Appearance: No Apparent Distress, WD/WN, Obese HEENT: Normal ENT Inspection Neck: Full Range of Motion, Normal Inspection, Non Tender, Supple Respiratory: Chest Non Tender, Lungs Clear, Normal Breath Sounds, No Accessory Muscle Use, No Respiratory Distress Cardiovascular: Regular Rate, Rhythm, No Gallop, No JVD, No Murmur, Normal Peripheral Pulses Extremity: Calf Tenderness, Inflammation, Pedal Edema, Swelling, Other Neurologic/Psychiatric: Alert, Oriented x3, No Motor/Sensory Deficits, Normal Mood/Affect, remediation consultant II-XII Norm as Tested Skin: Erythema Lymphatic: No Adenopathy Results Results/Procedures Labs Laboratory Tests 08/11/20 18:50 08/12/20 04:30 Patient resulted labs reviewed. Assessment/Plan Admission Diagnosis Cellulitis Sepsis Methamphetamine use Admission Status: Observation Clinical Quality Measures DVT/VTE Risk/Contraindication: Risk Factor Score Per Nursin RFS Level Per Nursing on Admit: 2=Moderate DAWN HANKINS MD Aug 12, 2020 11:59
[2020-08-12 12:00] VITALS: BP 115/82
--- NOTE | 2020-08-12 12:32 | NUR ---
PTD VANCOMYCIN (NOTE: PATIENT RECEIVED 1G VANCOMYCIN 08/11 1845 FT [facility] ED, PLAN TO RE-BOLUS). PATIENT WEIGHT 110.3KG, SCr 0.64, CrCl 151.9, BMI 41.7. LOADING DOSE 20MG/KG x 110.3KG = 2206 ~ 2G. MAINT DOSE 15MG/KG x 110.3KG = 1655 ~ 1500MG Q12H. VANCOMYCIN TROUGH DUE 08/14 @ 0000. IF TROUGH >20, HOLD DOSE & NOTIFY PHARMACY FOR ADJUSTMENTS.
[2020-08-12] MEDS ORDERED: VANCOMYCIN 2000 MG/NS 500 ML IVPB IV NR ×2 (13:00)
--- NOTE | 2020-08-12 13:45 | Consultation - Surgery ---
History of Present Illness History of Present Illness Patient Consulted On(marion/time) 08/12/20 10:27 Date Seen by Provider: Aug 12, 2020 Time Seen by Provider: 10:27 History of Present Illness Consult requested by Dr. Michele of cellulitis left lower extremity 34 year old female with cellulitis to the left lower extremity for about a week. Has been managed outpatient with no improvement. Went to ER with worsening redness and pain. She was tachycardic and elevated wbc so admitted for sepsis. She is having moderate pain in the left leg. Wbc has came down. No other complaints at this time. Denies n/v fever sweats chills shortness of breath or chest pain. Patient admits to recent Methamphetamine use. Was clean for 8 years. Not going back to using she states. Allergies and Home Medications Allergies Coded Allergies: hydrocodone (Verified Allergy, Intermediate, Nausea, 07/07/20) Sulfa (Sulfonamide Antibiotics) (Verified Allergy, Unknown, Rash, 07/07/20) Home Medications Cephalexin 500 Mg Tablet, 500 MG PO QID Prescribed by: OSCAR MART on 08/06/20 0701 Cetirizine HCl 10 Mg Tablet, 10 MG PO DAILY Prescribed by: JAKE LAZCANO on 07/20/20 0856 Clindamycin HCl 150 Mg Capsule, 150 MG PO QID Prescribed by: BRITT NAVA on 08/08/20 0844 Mupirocin 22 Gm Oint...g., 22 GM TP TID Prescribed by: BRITT NAVA on 08/08/20 0844 Patient Home Medication List Home Medication List Reviewed: Yes Past Apaicxw-Yftraa-Azfrdt Hx Patient Social History Alcohol Use: Denies Use Number of Drinks Today: DD Recreational Drug Use: Yes Drug of Choice: Meth Smoking Status: Current Everyday Smoker Type Used: Cigarettes 2nd Hand Smoke Exposure: Yes Recent Foreign Travel: No Contact w/Someone Who Travel: No Recent Infectious Disease Expo: No Recent Hopitalizations: No Seasonal Allergies Seasonal Allergies: No Surgeries History of Surgeries: Yes Surgeries: Adenoidectomy, Tonsillectomy Respiratory History of Respiratory Disorde: No Cardiovascular History of Cardiac Disorders: No Neurological History of Neurological Disord: No Reproductive System Hx Reproductive Disorders: Yes Female Reproductive Disorders: Polycystic Ovarian Dis Genitourinary History of Genitourinary Disor: No Gastrointestinal History of Gastrointestinal Di: No Musculoskeletal History of Musculoskeletal Dis: No Endocrine History of Endocrine Disorders: No HEENT History of HEENT Disorders: No Cancer History of Cancer: No Psychosocial History of Psychiatric Problem: No Integumentary History of Skin or Integumenta: No Blood Transfusions History of Blood Disorders: No Reviewed Nursing Assessment Reviewed/Agree w Nursing PMH: Yes Family Medical History Significant Family History: No Pertinent Family Hx Family Medial History: FH: anemia 19 MOTHER Hodgkin's lymphoma G8 BROTHER Kidney disease 19 FATHER Uterine fibroid 19 MOTHER Uterine fibroid 19 MOTHER Review of Systems-General Constitutional: No chills, No diaphoresis EENTM: No blurred vision, No double vision Respiratory: No cough, No dyspnea on exertion, No short of breath Cardiovascular: No chest pain, No edema Gastrointestinal: No abdominal pain, No nausea, No vomiting Genitourinary: No decreased output, No discharge Musculoskeletal: No back pain, No joint pain Skin: change in color (left lower extremity erythema) Psychiatric/Neurological: Denies Anxiety, Denies Depressed, Denies Emotional Problems All Other Systems Reviewed Negative Unless Noted: Yes (Negative excepted noted.) Physical Exam-General Problems Physical Exam Vital Signs Vital Signs - First Documented 08/11/20 18:23 Temp 36.1 Pulse 131 Resp 20 B/P (MAP) 161/94 (116) Pulse Ox 97 O2 Delivery Room Air Capillary Refill : Less Than 3 Seconds General Appearance: WD/WN, no apparent distress HEENT: PERRL/EOMI, normal ENT inspection Neck: non-tender, full range of motion, supple Respiratory: chest non-tender, no respiratory distress, no accessory muscle use Cardiovascular: regular rate, rhythm, no edema Gastrointestinal: non tender, soft, no organomegaly Rectal: deferred Back: normal inspection, no CVA tenderness Extremities: other (left lower extrmity erythema, slight edema, no fluctuance) Neurologic/Psychiatric: gauntlet pairer II-XII nml as tested, no motor/sensory deficits, alert, normal mood/affect, oriented x 3 Skin: warm/dry, other (erythema left lower extremity, warm to touch) Lymphatic: no adenopathy Data Review Labs Laboratory Tests 08/11/20 18:50: White Blood Count 12.8H, Red Blood Count 4.74, Hemoglobin 13.2, Hematocrit 40, Mean Corpuscular Volume 85, Mean Corpuscular Hemoglobin 28, Mean Corpuscular Hemoglobin Concent 33, Red Cell Distribution Width 13.2, Platelet Count 599H, Mean Platelet Volume 9.0, Immature Granulocyte % (Auto) 1, Neutrophils (%) (Auto) 79H, Lymphocytes (%) (Auto) 14, Monocytes (%) (Auto) 6, Eosinophils (%) (Auto) 0, Basophils (%) (Auto) 0, Neutrophils # (Auto) 10.2H, Lymphocytes # (Auto) 1.7, Monocytes # (Auto) 0.8, Eosinophils # (Auto) 0.1, Basophils # (Auto) 0.0, Immature Granulocyte # (Auto) 0.1, Sodium Level 134L, Potassium Level 3.5L, Chloride Level 98, Carbon Dioxide Level 21, Anion Gap 15H, Blood Urea Nitrogen 11, Creatinine 0.61, Estimat Glomerular Filtration Rate > 60, BUN/Creatinine Ratio 18, Glucose Level 186H, Lactic Acid Level 2.06*H, Calcium Level 9.1, Corrected Calcium 9.4, Total Bilirubin 0.4, Aspartate Amino Transf (AST/SGOT) 13, Alanine Aminotransferase (ALT/SGPT) 17, Alkaline Phosphatase 104, Total Protein 8.3H, Albumin 3.6 08/11/20 21:00: Lactic Acid Level 1.04 08/12/20 04:30: White Blood Count 8.0, Red Blood Count 4.11, Hemoglobin 11.2L, Hematocrit 36, Mean Corpuscular Volume 87, Mean Corpuscular Hemoglobin 27, Mean Corpuscular Hemoglobin Concent 31L, Red Cell Distribution Width 13.1, Platelet Count 385, Mean Platelet Volume 8.8L, Immature Granulocyte % (Auto) 1, Neutrophils (%) (Auto) 68, Lymphocytes (%) (Auto) 20, Monocytes (%) (Auto) 11, Eosinophils (%) (Auto) 1, Basophils (%) (Auto) 0, Neutrophils # (Auto) 5.5, Lymphocytes # (Auto) 1.6, Monocytes # (Auto) 0.9, Eosinophils # (Auto) 0.1, Basophils # (Auto) 0.0, Immature Granulocyte # (Auto) 0.1, Sodium Level 138, Potassium Level 3.5L, Chloride Level 103, Carbon Dioxide Level 24, Anion Gap 11, Blood Urea Nitrogen 10, Creatinine 0.64, Estimat Glomerular Filtration Rate > 60, BUN/Creatinine Ratio 16, Glucose Level 96, Calcium Level 8.7, Corrected Calcium 9.3, Total Bilirubin 0.4, Aspartate Amino Transf (AST/SGOT) 10, Alanine Aminotransferase (ALT/SGPT) 14, Alkaline Phosphatase 73, Total Protein 7.1, Albumin 3.2, Vancomycin Level Trough 3.8L Assessment/Plan Assessment/Plan Assessment/Plan left lower extremity cellulitis sepsis methamphetamine use no surgical intervention erythema outlined on LLE discussed meth cessation continue current medical management Clinical Quality Measures DVT/VTE Risk/Contraindication: Risk Factor Score Per Nursin RFS Level Per Nursing on Admit: 2=Moderate OLEG DOE DO Aug 12, 2020 13:45
[2020-08-12 16:15] VITALS: BP 108/64
[2020-08-12 20:33] VITALS: BP 117/74
[2020-08-13] VITALS (7 sets, daily range): BP systolic 107–138; BP diastolic 57–77
[2020-08-13] MEDS: VANCOMYCIN 1500 MG/NS 500 ML IVPB IV SCH ×4 (00:41→13:08)
[2020-08-13] MEDS: PIPERACILLIN/TAZO 4.5 GM/NS 100 ML IV SCH ×6 (00:41→15:56)
[2020-08-13] MEDS: ENOXAPARIN 40 MG/0.4 ML (LOVENOX) SYR SQ SCH ×2 (07:57→20:16)
[2020-08-13] MEDS: IBUPROFEN 800 MG (MOTRIN) TAB PO PRN ×2 (08:10→20:16)
--- NOTE | 2020-08-13 08:21 | Progress Note - Surgery ---
UNIQUE MAZA MED STUDENT 08/13/20 0821: Subjective Date Seen by a Provider: Aug 13, 2020 Time Seen by a Provider: 07:55 Subjective/Events-last exam Pt states the pain and redness in her leg has improved. Notes some sores in her mouth that she has had since onset of leg problems, but says now it is starting to hurt. Otherwise, no complaints. Focused Exam Lactate Level 08/11/20 18:50: Lactic Acid Level 2.06*H 08/11/20 21:00: Lactic Acid Level 1.04 Objective Exam Vital Signs Date Time Temp Pulse Resp B/P (MAP) Pulse Ox O2 Delivery O2 Flow Rate FiO2 08/13/20 07:31 36.4 90 18 138/61 (86) 100 Room Air 08/13/20 04:00 36.2 76 18 107/71 (83) 98 Room Air 08/13/20 00:00 36.5 92 16 121/71 (88) 98 Room Air 08/12/20 20:33 36.9 94 20 117/74 (88) 98 Room Air 08/12/20 20:30 Room Air 08/12/20 16:15 36.8 92 20 108/64 (79) 98 Room Air 08/12/20 12:00 36.2 112 18 115/82 (93) 97 Room Air I & O 08/13/20 07:00 Intake Total 1945 ml Balance 1945 ml Capillary Refill : Less Than 3 Seconds General Appearance: No Apparent Distress, WD/WN, Obese HEENT: PERRL/EOMI, Other (sore on external left lower lip; sore on external right lower lip extending to inner lip) Neck: Normal Inspection, Supple Respiratory: Lungs Clear, Normal Breath Sounds, No Accessory Muscle Use, No Respiratory Distress Cardiovascular: Regular Rate, Rhythm, No Murmur Gastrointestinal: non tender, soft, other (obese) Extremity: Other (tenderness and erythema on left anterior omalley are improved from yesterday; overlying skin is warm to touch) Neurologic/Psychiatric: Alert, Oriented x3, No Motor/Sensory Deficits, Normal Mood/Affect Skin: Normal Color, Warm/Dry Lymphatic: No Adenopathy Results Lab Microbiology 08/11/20 Blood Culture - Preliminary, Resulted No growth Assessment/Plan Assessment/Plan Assessment/Plan left lower extremity cellulitis sepsis methamphetamine use no surgical intervention erythema on LLE improved continue current medical management Clinical Quality Measures DVT/VTE Risk/Contraindication: Risk Factor Score Per Nursin RFS Level Per Nursing on Admit: 2=Moderate OLEG VANCE DO 08/13/201922: Subjective Subjective/Events-last exam Patient leg erythema and pain decreasing. No open wounds or drainage. Able to move without difficulty. Mouth sores. No other complaints. Denies n/v fever sweats chills shortness of breath or chest pain. Objective Exam General Appearance: No Apparent Distress, WD/WN HEENT: PERRL/EOMI, Other (sore on external left lower lip; sore on external right lower lip extending to inner lip) Neck: Normal Inspection, Supple Respiratory: Chest Non Tender, No Accessory Muscle Use, No Respiratory Distress Cardiovascular: Regular Rate, Rhythm, No JVD Gastrointestinal: non tender, soft, other (obese) Extremity: Other (tenderness and erythema on left anterior omalley are improved from yesterday; overlying skin is warm to touch, small area indurated) Neurologic/Psychiatric: Alert, Oriented x3, No Motor/Sensory Deficits, Normal Mood/Affect Skin: Normal Color, Warm/Dry Lymphatic: No Adenopathy Assessment/Plan Assessment/Plan Assessment/Plan left lower extremity cellulitis sepsis methamphetamine use mouth sores no surgical intervention erythema on LLE improved, one area with induration, may need drained if fluctuance develops continue current medical management Supervisory-Addendum Brief Verification & Attestation Participated in pt care: history, MDM, physical Personally performed: exam, history, MDM, supervision of care Care discussed with: Medical Student Procedures: n/a Results interpretation: Verified all documentation Verification and Attestation of Medical Student E/M Service A medical student performed and documented this service in my presence. I reviewed and verified all information documented by the medical student and made modifications to such information, when appropriate. I personally performed the physical exam and medical decision making. Oleg Vance, Aug 13, 2020,19:23 UNIQUE MAZA MED STUDENT Aug 13, 2020 08:21 OLEG VANCE DO Aug 13, 2020 19:23
--- NOTE | 2020-08-13 10:37 | Progress Note - Hospitalist ---
Subjective HPI/CC On Admission Date Seen by Provider: Aug 13, 2020 Time Seen by Provider: 09:00 This is a 34-year-old white female who had head cellulitis of her left leg for the last several days and had failed outpatient antibiotic treatment. The patient was admitted with tachycardia elevated fever and a leukocytosis and elevated lactic acid consistent with the diagnosis of sepsis. The patient at the time of my interview this morning has continued quite severe left leg pain erythema and swelling but has become afebrile with improvement in her white count. The patient does have a history of recent methamphetamine use but is adamant that she is going to quit Subjective/Events-last exam Patient notes that she has been sleeping quite a bit since she has been here. She continues to have some pain in her leg. She does note that it is quite a bit better however. In addition she notes that she is having a lot of oral mucosa pain and tooth pain Review of Systems General: Fatigue Musculoskeletal: leg pain Focused Exam Lactate Level 08/11/20 18:50: Lactic Acid Level 2.06*H 08/11/20 21:00: Lactic Acid Level 1.04 Objective Exam Vital Signs Vital Signs Date Time Temp Pulse Resp B/P (MAP) Pulse Ox O2 Delivery O2 Flow Rate FiO2 08/13/20 11:24 36.9 87 16 107/57 (74) 98 Room Air Capillary Refill : Less Than 3 Seconds General Appearance: No Apparent Distress, WD/WN, Obese HEENT: Other (Multiple herpetic lesions on her lip and large ulceration on the buccal mucosa of the right cheek) Neck: Non Tender Respiratory: Lungs Clear, Normal Breath Sounds, No Accessory Muscle Use, No Respiratory Distress Cardiovascular: Regular Rate, Rhythm, No Gallop, No Murmur Gastrointestinal: Normal Bowel Sounds, Non Tender, Soft Extremity: Calf Tenderness, Inflammation, Other (Left leg with area of increased fluctuance over omalley) Neurologic/Psychiatric: Alert, Oriented x3, No Motor/Sensory Deficits, Normal Mood/Affect Skin: Warm/Dry, Erythema Results/Procedures Lab Patient resulted labs reviewed. Assessment/Plan Assessment and Plan Assess & Plan/Chief Complaint Cellulitis day #2 vancomycin and Zosyn cultures negative-surgery following as well possible I&D in the a.m. if abscess forms-discussed with Dr. Vance meth use-currently detailed Herpetic lesions oral mucosa-we will use Magic mouthwash Probable discharge in a.m. Clinical Quality Measures DVT/VTE Risk/Contraindication: Risk Factor Score Per Nursin RFS Level Per Nursing on Admit: 2=Moderate AVIVA HANKINS MD Aug 13, 2020 10:37
[2020-08-13] MEDS: MAGIC MOUTHWASH (ADULT) PO SCH ×12 (12:01→20:17)
[2020-08-13] MEDS ORDERED: MAGIC MOUTHWASH, ADULT 155 ML BOTTLE PO SCH (13:00)
[2020-08-14] MEDS ORDERED: TROUGH ORDER-PHARMACY XX NR
[2020-08-14] MEDS: VANCOMYCIN 1500 MG/NS 500 ML IVPB IV SCH ×2 (00:59)
[2020-08-14] MEDS: PIPERACILLIN/TAZO 4.5 GM/NS 100 ML IV SCH ×4 (00:59→07:54)
[2020-08-14 04:00] VITALS: BP 104/70
[2020-08-14 05:58] LABS: BASOPHILS % (AUTO) 0 % (0-10); EOSINOPHILS # (AUTO) 0.1 10^3/uL (0.0-0.3); EOSINOPHILS % (AUTO) 1 % (0-10); HEMATOCRIT 35 % (35-52); HEMOGLOBIN 11.1 g/dL (11.5-16.0); LYMPHOCYTES # (AUTO) 1.5 10^3/uL (1.0-4.0); LYMPHOCYTES % (AUTO) 18 % (12-44); MEAN CORPUSCULAR HEMOGLOBIN 28 pg (25-34); MEAN CORPUSCULAR HGB CONC 31 g/dL (32-36); MEAN CORPUSCULAR VOLUME 88 fL (80-99); MEAN PLATELET VOLUME 8.8 fL (9.0-12.2); MONOCYTES # (AUTO) 0.7 10^3/uL (0.0-1.0); MONOCYTES % (AUTO) 8 % (0-12); NEUTROPHILS # (AUTO) 5.7 10^3/uL (1.8-7.8); NEUTROPHILS % (AUTO) 71 % (42-75); PLATELET COUNT 402 10^3/uL (130-400); WHITE BLOOD COUNT 8.1 10^3/uL (4.3-11.0)
[2020-08-14 06:09] LABS: CHLORIDE 104 MMOL/L (98-107); POTASSIUM 4.3 MMOL/L (3.6-5.0); SODIUM 137 MMOL/L (135-145)
[2020-08-14 06:11] LABS: CALCIUM 9.2 MG/DL (8.5-10.1); GLUCOSE 93 MG/DL (70-105)
[2020-08-14 06:13] LABS: CARBON DIOXIDE 22 MMOL/L (21-32)
[2020-08-14 06:15] LABS: CREATININE SERUM 0.65 MG/DL (0.60-1.30); GFR ESTIMATED > 60
[2020-08-14 06:16] LABS: BUN/CREATININE RATIO 20
[2020-08-14] MEDS: IBUPROFEN 800 MG (MOTRIN) TAB PO PRN (07:54)
[2020-08-14] MEDS: ENOXAPARIN 40 MG/0.4 ML (LOVENOX) SYR SQ SCH (07:55)
[2020-08-14 08:00] VITALS: BP 110/76
[2020-08-14] MEDS ORDERED: LIDOCAINE 1% INJ 20 ML 20 ML VIAL ONE (08:27)
--- NOTE | 2020-08-14 09:33 | Progress Note - Surgery ---
UNIQUE MAZA MED STUDENT 08/14/20 0933: Subjective Date Seen by a Provider: Aug 14, 2020 Time Seen by a Provider: 07:00 Subjective/Events-last exam Pt states she is feeling improved today and wants to go home. States there is still one spot on her left leg that is red and tender. Also notes that her mouth sores feel improved with mouthwash ordered by Dr. Michele. Focused Exam Lactate Level 08/11/20 18:50: Lactic Acid Level 2.06*H 08/11/20 21:00: Lactic Acid Level 1.04 Objective Exam Vital Signs Date Time Temp Pulse Resp B/P (MAP) Pulse Ox O2 Delivery O2 Flow Rate FiO2 08/14/20 08:00 36.7 89 20 110/76 (87) 100 Room Air 08/14/20 04:00 36.8 75 18 104/70 (81) 97 Room Air 08/13/20 23:42 37.2 85 16 114/77 (89) 98 Room Air 08/13/20 20:16 Room Air 08/13/20 19:59 36.5 87 16 131/74 (93) 98 Room Air 08/13/20 16:00 36.8 89 16 127/75 (92) 98 Room Air 08/13/20 11:24 36.9 87 16 107/57 (74) 98 Room Air I & O 08/14/20 07:00 Intake Total 3225 ml Output Total 1 ml Balance 3224 ml Capillary Refill : Less Than 3 Seconds General Appearance: No Apparent Distress, WD/WN, Obese HEENT: PERRL/EOMI, Other (mouth sores unchanged from yesterday) Neck: Normal Inspection, Supple Respiratory: Chest Non Tender, Normal Breath Sounds, No Accessory Muscle Use, No Respiratory Distress Cardiovascular: Regular Rate, Rhythm, No Murmur Gastrointestinal: non tender, soft, other (obese abdomen) Extremity: Other (tenderness and erythema on left anterior omalley are improved from yesterday; overlying skin is warm to touch, small area is fluctuant) Neurologic/Psychiatric: Alert, Oriented x3, No Motor/Sensory Deficits, Normal Mood/Affect Skin: Normal Color, Warm/Dry Lymphatic: No Adenopathy Results Lab Laboratory Tests 08/14/20 00:15: Vancomycin Level Trough 7.5L 08/14/20 05:26: White Blood Count 8.1, Red Blood Count 4.03, Hemoglobin 11.1L, Hematocrit 35, Mean Corpuscular Volume 88, Mean Corpuscular Hemoglobin 28, Mean Corpuscular Hemoglobin Concent 31L, Red Cell Distribution Width 12.5, Platelet Count 402H, Mean Platelet Volume 8.8L, Immature Granulocyte % (Auto) 1, Neutrophils (%) (Auto) 71, Lymphocytes (%) (Auto) 18, Monocytes (%) (Auto) 8, Eosinophils (%) (Auto) 1, Basophils (%) (Auto) 0, Neutrophils # (Auto) 5.7, Lymphocytes # (Auto) 1.5, Monocytes # (Auto) 0.7, Eosinophils # (Auto) 0.1, Basophils # (Auto) 0.0, Immature Granulocyte # (Auto) 0.1, Sodium Level 137, Potassium Level 4.3, Chloride Level 104, Carbon Dioxide Level 22, Anion Gap 11, Blood Urea Nitrogen 13, Creatinine 0.65, Estimat Glomerular Filtration Rate > 60, BUN/Creatinine Ratio 20, Glucose Level 93, Calcium Level 9.2 Microbiology 08/11/20 Blood Culture - Preliminary, Resulted No growth Procedures I&D on left anterior omalley performed on pt at 8:35 with purulent drainage expressed and was packed with iodoform; cultures taken; pt tolerated well Assessment/Plan Assessment/Plan Assessment/Plan left lower extremity cellulitis-improved sepsis-resolved methamphetamine use mouth sores I&D of abscess on left anterior omalley done this morning, pt tolerated well stable for discharge from a surgical standpoint educated pt on changing packing and plan for follow up, she understands and is in agreement Clinical Quality Measures DVT/VTE Risk/Contraindication: Risk Factor Score Per Nursin RFS Level Per Nursing on Admit: 2=Moderate OLEG DOE DO 08/15/20 1550: Subjective Subjective/Events-last exam Patient leg is feeling better on left lower extremity. Now that one area that is indurated is fluctuant. Patient wanting to go home. Has no other complaints at this time. Denies any nausea vomiting fever sweats chills shortness of breath or chest pain. Objective Exam General Appearance: No Apparent Distress, WD/WN HEENT: PERRL/EOMI, Other (mouth sores unchanged from yesterday) Neck: Normal Inspection, Supple Respiratory: Chest Non Tender, No Accessory Muscle Use, No Respiratory Distress Cardiovascular: Regular Rate, Rhythm, No JVD Gastrointestinal: non tender, soft, other (obese abdomen) Extremity: Other (tenderness and erythema on left anterior omalley are improved from yesterday; overlying skin is warm to touch, small area is fluctuant) Neurologic/Psychiatric: Alert, Oriented x3, No Motor/Sensory Deficits, Normal Mood/Affect Skin: Normal Color, Warm/Dry Lymphatic: No Adenopathy Assessment/Plan Assessment/Plan Assessment/Plan left lower extremity cellulitis-improved Left lower extremity abscess sepsis-resolved methamphetamine use mouth sores We discussed risk and benefits of having incision and drainage of left lower extremity abscess. Patient understands and wishes to proceed stable for discharge from a surgical standpoint educated pt on changing packing and plan for follow up, she understands and is in agreement Supervisory-Addendum Brief Verification & Attestation Participated in pt care: history, MDM, physical Personally performed: exam, history, MDM, supervision of care Care discussed with: Medical Student Procedures: n/a Results interpretation: Verified all documentation Verification and Attestation of Medical Student E/M Service A medical student performed and documented this service in my presence. I reviewed and verified all information documented by the medical student and made modifications to such information, when appropriate. I personally performed the physical exam and medical decision making. Oleg Doe, Aug 14, 2020,15:50 UNIQUE MAZA MED STUDENT Aug 14, 2020 09:33 OLEG DOE DO Aug 15, 2020 15:50
[2020-08-14] MEDS ORDERED: MUPI22OI2 TP (09:45)
[2020-08-14] MEDS: MAGIC MOUTHWASH (ADULT) PO SCH ×4 (09:45)
[2020-08-14] MEDS ORDERED: ACET-2267 PO (09:47)
[2020-08-14] MEDS ORDERED: CLIN150C17 PO (09:51)
--- NOTE | 2020-08-14 09:53 | NUR ---
I SPOKE WITH THE PATIENT AND WENT THROUGH THE EXTERNAL MED HISTORY TO COMPLETE THIS MED REC. OTC: TYLENOL EXTRA STRENGTH
[2020-08-14] MEDS ORDERED: AMOX-358 PO (10:23)
[2020-08-14] MEDS ORDERED: DOXY100C42 PO (10:23)
--- NOTE | 2020-08-14 10:23 | Discharge Summary ---
Discharge Summary Hospital Course Was the Problem List Reviewed?: Yes Problems/Dx: (1) Sepsis Status: Acute (2) Cellulitis of leg, left Status: Acute (3) Failure of outpatient treatment Status: Acute (4) Methamphetamine use disorder, moderate Status: Acute Hospital Course Date of Admission: Aug 11, 2020 at 19:53 Admission Diagnosis : Family Physician/Provider: Eva Waggoner Date of Discharge: 08/14/20 Discharge Diagnosis: right leg cellulitis, sepsis, meth use Hospital Course: Hospital course: Pt had an uneventful hospital course, she was admitted for right leg cellulitis, a known meth user, she was placed on Vanc and Zosyn and had compliance issues in the past, her PCP is in [place] at [facility]. Dr. Vance performed incision and drainage on day of discharge, cultures obtained, Pt will go home on Augmentin and Doxycycline to cover for likely MRSA since she is allergic to Sulfa. No pain medication was prescribed at discharge and she did not request any. Labs and Pending Lab Test: Laboratory Tests 08/14/20 00:15: Vancomycin Level Trough 7.5L 08/14/20 05:26: White Blood Count 8.1, Red Blood Count 4.03, Hemoglobin 11.1L, Hematocrit 35, Mean Corpuscular Volume 88, Mean Corpuscular Hemoglobin 28, Mean Corpuscular Hemoglobin Concent 31L, Red Cell Distribution Width 12.5, Platelet Count 402H, Mean Platelet Volume 8.8L, Immature Granulocyte % (Auto) 1, Neutrophils (%) (Auto) 71, Lymphocytes (%) (Auto) 18, Monocytes (%) (Auto) 8, Eosinophils (%) (Auto) 1, Basophils (%) (Auto) 0, Neutrophils # (Auto) 5.7, Lymphocytes # (Auto) 1.5, Monocytes # (Auto) 0.7, Eosinophils # (Auto) 0.1, Basophils # (Auto) 0.0, Immature Granulocyte # (Auto) 0.1, Sodium Level 137, Potassium Level 4.3, Chloride Level 104, Carbon Dioxide Level 22, Anion Gap 11, Blood Urea Nitrogen 13, Creatinine 0.65, Estimat Glomerular Filtration Rate > 60, BUN/Creatinine Ratio 20, Glucose Level 93, Calcium Level 9.2 Microbiology 08/11/20 Blood Culture - Preliminary, Resulted No growth Home Meds Active Doxycycline Monohydrate 100 Mg Capsule 100 Mg PO BID Augmentin 875-125 Tablet (Amoxicillin/Potassium Clav) 1 Each Tablet 1 Each PO BID Reported Clindamycin HCl 150 Mg Capsule 150 Mg PO QID PICKED UP ON 08/08/2020 Tylenol Extra Strength (Acetaminophen) 500 Mg Tablet 1,000 Mg PO Q8H PRN TAKES 2 (500MG) TABLETS Mupirocin 22 Gm Oint...g. 1 Applic TP TID Assessment/Pt Instructions [facility] this week Discharge Planning: <30 minutes discharge planning Discharge Physical Examination Vital Signs Vital Signs Date Time Temp Pulse Resp B/P (MAP) Pulse Ox O2 Delivery O2 Flow Rate FiO2 08/14/20 08:00 36.7 89 20 110/76 (87) 100 Room Air General Appearance: No Apparent Distress, WD/WN, Chronically ill Neurologic/Psychiatric: Alert, Oriented x3, No Motor/Sensory Deficits, Normal Mood/Affect Allergies: Coded Allergies: hydrocodone (Verified Allergy, Intermediate, Nausea, 07/07/20) Sulfa (Sulfonamide Antibiotics) (Verified Allergy, Unknown, Rash, 07/07/20) Discharge Summary Date of Admission Aug 11, 2020 at 19:53 Date of Discharge Discharge Date: Aug 14, 2020 Admission Diagnosis Cellulitis Sepsis Methamphetamine use Clinical Quality Measures DVT/VTE Risk/Contraindication: Risk Factor Score Per Nursin RFS Level Per Nursing on Admit: 2=Moderate MINERVA PAINTER DO Aug 14, 2020 10:23
--- NOTE | 2020-08-14 10:56 | Progress Note ---
ABIDA JONES MED STUDENT 08/14/20 1056: Progress Note Patient was admitted on 08/11 via the ED for cellulitis of the left lower leg and sepsis. She had been seen two prior times in the ED at [facility] for similar issues and was placed on Keflex and Clindamycin as outpatient with minimal results. It was noted she had pain in this region and increased redness and swelling. She was started on IV Vancomycin and Zosyn on admission. She has a history of methamphetamine use. She also developed mouth sores, which improved with medicated mouthwash. General surgery was consulted and initially there was no indication for surgical intervention, though later it was determined I&D was necessary. I&D was completed at the bedside this AM and patient tolerated well per surgical note. Blood cultures came back negative. Culture from drainage of I&D pending. Patient is stable for discharge and feels ready to continue PO antibiotics at home. MAGDALENE PAINTER DO 08/15/20 0505: Supervisory-Addendum Brief Verification & Attestation Participated in pt care: history, MDM, physical Personally performed: exam, history, MDM, supervision of care Care discussed with: Medical Student Procedures: n/a Results interpretation: Verified all documentation Verification and Attestation of Medical Student E/M Service A medical student performed and documented this service in my presence. I reviewed and verified all information documented by the medical student and made modifications to such information, when appropriate. I personally performed the physical exam and medical decision making. Magdalene Painter, Aug 15, 2020,05:05 ABIDA JONES MED STUDENT Aug 14, 2020 10:56 MAGDALENE PAINTER DO Aug 15, 2020 05:05
[2020-08-14] MEDS ORDERED: VANCOMYCIN INJECTION 1,250 MG in NS (IVPB) 250 ML IV SCH (11:00)
[2020-08-14 12:10] VITALS: BP 120/81
[2020-08-14 12:46] VITALS: BP 120/81
--- NOTE | 2020-08-14 13:56 | OPERATIVE REPORT ---
DATE OF SERVICE: 08/14/2020 PREOPERATIVE DIAGNOSIS: Left lower extremity abscess. POSTOPERATIVE DIAGNOSIS: Left lower extremity abscess. PROCEDURE: Incision and drainage of left lower extremity with an incision 2.5 cm. SURGEON: Oleg Vance DO ANESTHESIA: A 1% lidocaine 4 mL. COMPLICATIONS: None. INDICATIONS: The patient is a 34-year-old female with cellulitis, left lower extremity. The induration has decreased, but now a fluctuant area present. She understands risks and benefits of procedure and wished to proceed with procedure. Consent was signed in the chart. DESCRIPTION OF PROCEDURE: The patient procedure was performed at bedside. The area was prepped and draped in a sterile fashion. Local anesthetic was infiltrated over the area of fluctuance. An 11 blade scalpel was used to make a 2.5 cm incision down through the skin and into the subcutaneous tissue where purulent material erupted, culture was obtained. All loculations were broken up. The wound was then irrigated with copious amounts of irrigation and the wound was then packed with quarter inch iodoform gauze. The area was washed and dried and sterile bandage was applied. The patient instructed on eating to irrigate and pack the wound daily. If she needs assistance to schedule with the office on a daily basis and also that we can instruct someone as well on how to perform. Job ID: [id number] DocumentID: [id number] Dictated Date: 08/14/2020 09:19:05 Barrel Assembler Date: 08/14/2020 13:55:19 Dictated By: OLEG VANCE DO
--- NOTE | 2020-08-14 13:56 | NUR ---
"RD ASSESSMENT PMHx: cellulitis (L leg); hx of meth use PT INTERACTION: Pt was awake and pleasant during nutrition assessment. Pt states current appetite is alright. Note avg PO intake 100% x2d, per chart review. Pt states following a regular diet at home, and has no issues with nausea, vomiting, constipation, or diarrhea. Pt states unsure of last BM. Note pt not currently on bowel regimen per chart review. Pt states no recent wt changes. Note unable to determine recent wt hx, per chart review. Note presence of wound (L lower leg), per chart review. ABNORMAL NUTRITION-RELATED LAB VALUES LOW: K 3.5; HIGH: Est. kcal needs: 9655-7318 kcal | 15-18 kcal/kg Est. Pro needs: 110-132 g Pro | 1.0-1.2 g Pro/kg PES STATEMENT: Inadequate protein intake ([id number]) related to increased protein needs as evidenced by presence of wound (L lower leg). INTERVENTION: Continue with current diet order of Regular diet. Add Ensure HP (vary) to meals TID. Provides 160 kcal and 16 g Pro per serving, for perceived benefit to wound healing. Will continue to follow and reassess as pt needs, intake, and status change. Ml Martinez, MS RD LD"
== END 2020-08-14 12:50 | disposition home or self-care (01) | DRG 854 ==
LOC: EDUNIT# 18:16 → ER FS 18:17 → 4TH 19:53
PROVIDERS: ADMIT Internal Medicine; ATTEND Internal Medicine
PROC: 0J9P0ZZ Drainage of Left Lower Leg Subcutaneous Tissue and Fascia, Open Approach (ICD-10-PCS; principal; 2020-08-14)
DX: A41.9 Sepsis, unspecified organism (principal); L03.116 Cellulitis of left lower limb; E87.2 Acidosis; L02.416 Cutaneous abscess of left lower limb; F15.90 Other stimulant use, unspecified, uncomplicated; K13.79 Other lesions of oral mucosa; Z88.5 Allergy status to narcotic agent; Z88.2 Allergy status to sulfonamides
CPT/HCPCS: 36415; 80048; 80053; 80202; 83605; 85025; 87040; 87070; 87075; 87077; 87205

== ENCOUNTER 2021-10-07 15:22 | Emergency (ER) | payer MEDICAID ==
[~2021-10-07] VITALS: Ht 162.6 cm; Wt 131.5 kg
[~2021-10-07 15:22] MED LIST changes: +ACET-2267 PO; +AMOX-358 PO; -CLIN150C17 PO; +CLIN150C20 PO; +CYCL10TA25 PO; -CYCL10TA9 PO; +DOXY-311 PO
[2021-10-07 15:30] VITALS: BP 156/85
--- NOTE | 2021-10-07 15:41 | ED GU-Female ---
General Chief Complaint: OB < 20 WEEKS Stated Complaint: VAGINAL BLEEDING DURING PREG; COVID+ Source: patient Exam Limitations: no limitations History of Present Illness Date Seen by Provider: Oct 07, 2021 Time Seen by Provider: 15:30 Initial Comments Patient is a 36-year-old G2, P1, estimated 7-week gestational female who presents with painless vaginal bleeding/spotting starting this afternoon. Patient reports light pink on tissue paper upon wiping. Denies flank pain, cramping, vaginal pain. Patient has not had an ultrasound to confirm status. She is also recovering from the Covid which was diagnosed 1 week ago. She denies respiratory symptoms fever chills sweats or other Covid related symptoms at this time. No other symptoms or complaints. Timing/Duration: just prior to arrival Location: other Radiation: other Activities at Onset: other Sexual [place] History: other Modifying Factors: Improves With Other Associated Symptoms: other Allergies and Home Medications Allergies Coded Allergies: hydrocodone (Verified Allergy, Intermediate, Nausea, 07/07/20) Sulfa (Sulfonamide Antibiotics) (Verified Allergy, Unknown, Rash, 07/07/20) Patient Home Medication List Home Medication List Reviewed: Yes Acetaminophen (Tylenol Extra Strength) 500 Mg Tablet, 1,000 MG PO Q8H PRN for PAIN-MILD (1-4), (Reported) Entered as Reported by: DONYA CLINTON on 08/14/20 0947 Amoxicillin/Potassium Clav (Augmentin 875-125 Tablet) 1 Each Tablet, 1 EACH PO BID Prescribed by: MINERVA PAINTER on 08/14/20 1023 Doxycycline Monohydrate (Doxycycline Monohydrate) 100 Mg Capsule, 100 MG PO BID Prescribed by: MINERVA PAINTER on 08/14/20 1023 Mupirocin (Mupirocin) 22 Gm Oint...g., 1 APPLIC TP TID, (Reported) Entered as Reported by: DONYA CLINTON on 08/14/20 0945 Review of Systems Review of Systems Constitutional: see HPI EENTM: see HPI Respiratory: see HPI Cardiovascular: see HPI Genitourinary: see HPI Musculoskeletal: see HPI Skin: see HPI Psychiatric/Neurological: See HPI Endocrine: See HPI Hematologic/Lymphatic: See HPI All Other Systemes Reviewed Negative Unless Noted: Yes Past Jomhpeu-Rysyqn-Rpynme Hx Patient Social History Tobacco Use?: Yes Seasonal Allergies Seasonal Allergies: No Past Medical History Surgeries: Yes Adenoidectomy, Tonsillectomy Respiratory: No Cardiac: No Neurological: No Reproductive Disorders: Yes Female Reproductive Disorders: Polycystic Ovarian Dis Genitourinary: No Gastrointestinal: No Musculoskeletal: No Endocrine: No HEENT: No Cancer: No Psychosocial: No Integumentary: No Blood Disorders: No Family Medical History FH: anemia 19 MOTHER Hodgkin's lymphoma G8 BROTHER Kidney disease 19 FATHER Uterine fibroid 19 MOTHER Uterine fibroid 19 MOTHER No Pertinent Family Hx Physical Exam Vital Signs Vital Signs - First Documented 10/07/21 15:30 Temp 37.3 Pulse 117 Resp 18 B/P (MAP) 156/85 (108) Pulse Ox 100 O2 Delivery Room Air Capillary Refill : Height, Weight, BMI Height: '" Weight: lbs. oz. kg; 41.71 BMI Method: General Appearance: WD/WN, no apparent distress HEENT: PERRL/EOMI, normal ENT inspection Back: normal inspection Progress/Results/Core Measures Suspected Sepsis SIRS Temperature: Pulse: Respiratory Rate: Laboratory Tests 10/07/21 15:48: White Blood Count 4.6 Blood Pressure / Mean: Laboratory Tests 10/07/21 15:48: Platelet Count 251 Results/Orders Lab Results Laboratory Tests Test 10/07/21 15:48 Range/Units White Blood Count 4.6 4.3-11.0 10^3/uL Red Blood Count 5.10 3.80-5.11 10^6/uL Hemoglobin 14.3 11.5-16.0 g/dL Hematocrit 42 35-52 % Mean Corpuscular Volume 83 80-99 fL Mean Corpuscular Hemoglobin 28 25-34 pg Mean Corpuscular Hemoglobin Concent 34 32-36 g/dL Red Cell Distribution Width 13.3 10.0-14.5 % Platelet Count 251 130-400 10^3/uL Mean Platelet Volume 9.7 9.0-12.2 fL Immature Granulocyte % (Auto) 0 % Neutrophils (%) (Auto) 56 42-75 % Lymphocytes (%) (Auto) 31 12-44 % Monocytes (%) (Auto) 10 0-12 % Eosinophils (%) (Auto) 2 0-10 % Basophils (%) (Auto) 0 0-10 % Neutrophils # (Auto) 2.6 1.8-7.8 X 10^3 Lymphocytes # (Auto) 1.4 1.0-4.0 X 10^3 Monocytes # (Auto) 0.5 0.0-1.0 X 10^3 Eosinophils # (Auto) 0.1 0.0-0.3 10^3/uL Basophils # (Auto) 0.0 0.0-0.1 10^3/uL Immature Granulocyte # (Auto) 0.0 0.0-0.1 10^3/uL Human Chorionic Gonadotropin, Quant 79539 H <5 MIU/ML My Orders Orders - ETTA LUNDY DO Cbc With Automated Diff (10/07/21 15:38) RH (10/07/21 15:38) Urine Bedside (10/07/21 15:38) Hcg,Quantitative (10/07/21 15:38) Vital Signs/I&O 10/07/21 15:30 Temp 37.3 Pulse 117 Resp 18 B/P (MAP) 156/85 (108) Pulse Ox 100 O2 Delivery Room Air Capillary Refill : Departure Communication (Admissions) Painless vaginal bleeding. hCG quant performed. Patient has no abdominal cramping or heavy bleeding. Will have patient repeat level in 48 hours and follow-up with [facility]. Patient may benefit from an outpatient ultrasound. Discussed with patient possibility of ectopic versus miscarriage versus normal. Patient verbalizes understanding agreement discharge instructions prior to departure peer Impression Primary Impression: Vaginal bleeding in patient after first trimester Disposition: 01 HOME, SELF-CARE Condition: Stable Departure-Patient Inst. Decision time for Depature: 16:35 Referrals: JENSEN BAUM (PCP) Primary Care Physician [facility] (Family) Primary Care Physician Patient Instructions: Bleeding in Early (DC) Add. Discharge Instructions: You were evaluated in the emergency department for painless vaginal bleeding during . The cause of your symptoms cannot be identified but may be related to a normal , threatened miscarriage or possible ectopic . Please follow-up with your OB in 48 hours for repeat hCG quant testing, review of your Rh status and consideration of outpatient ultrasound. In the meantime if you have worsening symptoms, return to the emergency department. All discharge instructions reviewed with patient and/or family. Voiced understanding. ETTA LUNDY DO Oct 07, 2021 15:41
[2021-10-07 15:59] LABS: BASOPHILS % (AUTO) 0 % (0-10); EOSINOPHILS # (AUTO) 0.1 10^3/uL (0.0-0.3); EOSINOPHILS % (AUTO) 2 % (0-10); HEMATOCRIT 42 % (35-52); HEMOGLOBIN 14.3 g/dL (11.5-16.0); LYMPHOCYTES # (AUTO) 1.4 X 10^3 (1.0-4.0); LYMPHOCYTES % (AUTO) 31 % (12-44); MEAN CORPUSCULAR HEMOGLOBIN 28 pg (25-34); MEAN CORPUSCULAR HGB CONC 34 g/dL (32-36); MEAN CORPUSCULAR VOLUME 83 fL (80-99); MEAN PLATELET VOLUME 9.7 fL (9.0-12.2); MONOCYTES # (AUTO) 0.5 X 10^3 (0.0-1.0); MONOCYTES % (AUTO) 10 % (0-12); NEUTROPHILS # (AUTO) 2.6 X 10^3 (1.8-7.8); NEUTROPHILS % (AUTO) 56 % (42-75); PLATELET COUNT 251 10^3/uL (130-400); WHITE BLOOD COUNT 4.6 10^3/uL (4.3-11.0)
== END 2021-10-07 16:42 | disposition home or self-care (01) ==
LOC: EDUNIT# 15:22 → ER FS 15:25
DX: O46.91 Antepartum hemorrhage, unspecified, first trimester (principal); Z72.0 Tobacco use; Z3A.00 Weeks of gestation of pregnancy not specified
CPT/HCPCS: 36415; 84702; 84703; 85025; 86901

== ENCOUNTER 2021-11-30 18:08 | Emergency (ER) | payer MEDICAID ==
[~2021-11-30] VITALS: Ht 64 cm; Wt 127.0 kg
--- NOTE | 2021-11-30 18:24 | ED GI ---
General Stated Complaint: VOMITTING History of Present Illness Date Seen by Provider: Nov 30, 2021 Time Seen by Provider: 18:24 Initial Comments 36-year-old female presents with vomiting. Patient is 14 weeks . She reports that every since she is found out she is she is had vomiting. She reports that over the last couple days it feels like it has been a little bit worse having a hard time keeping anything down. Patient is on "both vitamin B and has Zofran. She reports that the vitamin B helps some but the Zofran does not. She presents today because she feels like she is a little bit dehydrated because she has been vomiting so much for the last 3 days. She reports that she has had similar issues in her previous pregnancies. Patient denies any abdominal pain, fever, diarrhea, headache or any other signs of infection or systemic complaints. Allergies and Home Medications Allergies Coded Allergies: hydrocodone (Verified Allergy, Intermediate, Nausea, 07/07/20) Sulfa (Sulfonamide Antibiotics) (Verified Allergy, Unknown, Rash, 07/07/20) Patient Home Medication List Home Medication List Reviewed: Yes Acetaminophen (Tylenol Extra Strength) 500 Mg Tablet, 1,000 MG PO Q8H PRN for PAIN-MILD (1-4), (Reported) Entered as Reported by: DONYA CLINTON on 08/14/20 0947 Amoxicillin/Potassium Clav (Augmentin 875-125 Tablet) 1 Each Tablet, 1 EACH PO BID Prescribed by: MINERVA PAINTER on 08/14/20 1023 Doxycycline Monohydrate (Doxycycline Monohydrate) 100 Mg Capsule, 100 MG PO BID Prescribed by: MINERVA PAINTER on 08/14/20 1023 Mupirocin (Mupirocin) 22 Gm Oint...g., 1 APPLIC TP TID, (Reported) Entered as Reported by: DONYA CLINTON on 08/14/20 0945 Review of Systems Review of Systems Constitutional: No chills, No fever Respiratory: Denies Cough, Denies Shortness of Air Cardiovascular: Denies Chest Pain, Denies Palpitations Gastrointestinal: Denies Abdominal Pain; Nausea, Vomiting Genitourinary: No Symptoms Reported Musculoskeletal: no symptoms reported Skin: no symptoms reported Psychiatric/Neurological: No Symptoms Reported Endocrine: No Symptoms Reported Hematologic/Lymphatic: No Symptoms Reported Past Dkwzmcp-Hvbezv-Ullaek Hx Immunizations Up To Date First/Initial COVID19 Vaccinat: March 2021 Second COVID19 Vaccination Brian: March 2021 Seasonal Allergies Seasonal Allergies: No Past Medical History Surgeries: Yes Adenoidectomy, Tonsillectomy Respiratory: No Cardiac: No Neurological: No Reproductive Disorders: Yes Female Reproductive Disorders: Polycystic Ovarian Dis Genitourinary: No Gastrointestinal: No Musculoskeletal: No Endocrine: No HEENT: No Cancer: No Psychosocial: No Integumentary: No Blood Disorders: No Family Medical History FH: anemia 19 MOTHER Hodgkin's lymphoma G8 BROTHER Kidney disease 19 FATHER Uterine fibroid 19 MOTHER Uterine fibroid 19 MOTHER No Pertinent Family Hx Physical Exam Vital Signs Vital Signs - First Documented 11/30/21 18:28 Temp 36.9 Pulse 100 Resp 18 B/P (MAP) 118/80 (93) Capillary Refill : Height/Weight/BMI Height: '" Weight: lbs. oz. kg; 49.00 BMI Method: General Appearance: WD/WN, no apparent distress, obese Respiratory: lungs clear, normal breath sounds Cardiovascular: normal peripheral pulses, regular rate, rhythm Gastrointestinal: non tender, soft Extremities: normal range of motion, non-tender Neurologic/Psychiatric: alert, normal mood/affect, oriented x 3 Skin: normal color, warm/dry Progress/Results/Core Measures Results/Orders Lab Results Laboratory Tests Test 11/30/21 18:21 11/30/21 19:50 Range/Units White Blood Count 8.1 4.3-11.0 10^3/uL Red Blood Count 4.63 3.80-5.11 10^6/uL Hemoglobin 13.1 11.5-16.0 g/dL Hematocrit 38 35-52 % Mean Corpuscular Volume 82 80-99 fL Mean Corpuscular Hemoglobin 28 25-34 pg Mean Corpuscular Hemoglobin Concent 35 32-36 g/dL Red Cell Distribution Width 13.2 10.0-14.5 % Platelet Count 244 130-400 10^3/uL Mean Platelet Volume 9.6 9.0-12.2 fL Immature Granulocyte % (Auto) 0 % Neutrophils (%) (Auto) 68 42-75 % Lymphocytes (%) (Auto) 21 12-44 % Monocytes (%) (Auto) 10 0-12 % Eosinophils (%) (Auto) 1 0-10 % Basophils (%) (Auto) 0 0-10 % Neutrophils # (Auto) 5.5 1.8-7.8 X 10^3 Lymphocytes # (Auto) 1.7 1.0-4.0 X 10^3 Monocytes # (Auto) 0.8 0.0-1.0 X 10^3 Eosinophils # (Auto) 0.1 0.0-0.3 10^3/uL Basophils # (Auto) 0.0 0.0-0.1 10^3/uL Immature Granulocyte # (Auto) 0.0 0.0-0.1 10^3/uL Sodium Level 135 135-145 MMOL/L Potassium Level 3.2 L 3.6-5.0 MMOL/L Chloride Level 103 98-107 MMOL/L Carbon Dioxide Level 20 L 21-32 MMOL/L Anion Gap 12 5-14 MMOL/L Blood Urea Nitrogen 8 7-18 MG/DL Creatinine 0.54 L 0.60-1.30 MG/DL Estimat Glomerular Filtration Rate 123 BUN/Creatinine Ratio 15 Glucose Level 100 70-105 MG/DL Calcium Level 9.1 8.5-10.1 MG/DL Corrected Calcium 9.1 8.5-10.1 MG/DL Total Bilirubin 0.6 0.1-1.0 MG/DL Aspartate Amino Transf (AST/SGOT) 24 5-34 U/L Alanine Aminotransferase (ALT/SGPT) 22 0-55 U/L Alkaline Phosphatase 62 40-136 U/L Total Protein 7.1 6.4-8.2 GM/DL Albumin 4.0 3.2-4.5 GM/DL Lipase 24 8-78 U/L Urine Color YELLOW Urine Clarity CLEAR Urine pH 7.0 5-9 Urine Specific [place] <=1.005 1.016-1.022 Urine Protein NEGATIVE NEGATIVE Urine Glucose (UA) NEGATIVE NEGATIVE Urine Ketones 1+ H NEGATIVE Urine Nitrite NEGATIVE NEGATIVE Urine Bilirubin NEGATIVE NEGATIVE Urine Urobilinogen 4.0 < = 1.0 MG/DL Urine Leukocyte Esterase 1+ H NEGATIVE Urine RBC (Auto) NEGATIVE NEGATIVE Urine RBC NONE /HPF Urine WBC 10-25 H /HPF Urine Squamous Epithelial Cells 5-10 /HPF Urine Crystals NONE /LPF Urine Bacteria FEW H /HPF Urine Casts NONE /LPF Urine Mucus NEGATIVE /LPF Urine Culture Indicated YES My Orders Orders - ROMEO WHITFIELD L DO Cbc With Automated Diff (11/30/21 18:33) Comprehensive Metabolic Panel (11/30/21 18:33) Lipase (11/30/21 18:33) Ua Culture If Indicated (11/30/21 18:33) Lactated Ringers (Lr 1000 Ml Iv Solution (11/30/21 18:33) Promethazine Injection (Phenergan Injec (11/30/21 18:45) Lactated Ringers (Lr 1000 Ml Iv Solution (11/30/21 18:34) Urine Culture (11/30/21 19:50) Medications Given in ED Current Medications Medications Dose Ordered Sig/Quentin Route Start Time Stop Time Status Last Admin Dose Admin Promethazine HCl 12.5 mg ONCE ONCE IVP 11/30/21 18:45 11/30/21 18:46 DC 11/30/21 18:39 12.5 MG Vital Signs/I&O 11/30/21 18:28 Temp 36.9 Pulse 100 Resp 18 B/P (MAP) 118/80 (93) Progress Progress Note : Progress Note Patient feeling significantly better following IV fluids. She had no further episodes of vomiting here in the ER. Patient does have a urinalysis concerning for UTI with her being I will treat her with Keflex. Patient has at home medications for her hyperemesis gravidarum. Patient stable discharged home Departure Impression Primary Impression: Hyperemesis gravidarum Additional Impressions: Urinary tract infection Qualified Codes: N30.00 - Acute cystitis without hematuria 14 weeks gestation of Disposition: HOME, SELF-CARE Condition: Stable Departure-Patient Inst. Referrals: JENSEN BAUM (PCP) Primary Care Physician [facility] (Family) Primary Care Physician Patient Instructions: Hyperemesis Gravidarum (DC), Medications and , Urinary Tract Infection, Adult ED Add. Discharge Instructions: [place] diet Please use your already prescribed nausea medications as needed Follow-up with your primary care provider next week for recheck of your symptoms Scripts Cephalexin (Cephalexin) 500 Mg Tablet 500 MG PO QID, #20 TAB 0 Refills Prov: WHITFIELD,ROMEO L DO 11/30/21 WHITFIELD,ROMEO L DO Nov 30, 2021 18:24
[2021-11-30] MEDS ORDERED: LACTATED RINGERS 1,000 ML IV STA ×2 (18:33→18:34)
[2021-11-30 18:37] LABS: WHITE BLOOD COUNT 8.1 10^3/uL (4.3-11.0)
[2021-11-30 18:38] LABS: BASOPHILS % (AUTO) 0 % (0-10); EOSINOPHILS # (AUTO) 0.1 10^3/uL (0.0-0.3); EOSINOPHILS % (AUTO) 1 % (0-10); HEMATOCRIT 38 % (35-52); HEMOGLOBIN 13.1 g/dL (11.5-16.0); LYMPHOCYTES # (AUTO) 1.7 X 10^3 (1.0-4.0); LYMPHOCYTES % (AUTO) 21 % (12-44); MEAN CORPUSCULAR HEMOGLOBIN 28 pg (25-34); MEAN CORPUSCULAR HGB CONC 35 g/dL (32-36); MEAN CORPUSCULAR VOLUME 82 fL (80-99); MEAN PLATELET VOLUME 9.6 fL (9.0-12.2); MONOCYTES # (AUTO) 0.8 X 10^3 (0.0-1.0); MONOCYTES % (AUTO) 10 % (0-12); NEUTROPHILS # (AUTO) 5.5 X 10^3 (1.8-7.8); NEUTROPHILS % (AUTO) 68 % (42-75); PLATELET COUNT 244 10^3/uL (130-400)
[2021-11-30 18:41] LABS: BILIRUBIN,TOTAL 0.6 MG/DL (0.1-1.0); CALCIUM 9.1 MG/DL (8.5-10.1); CREATININE SERUM 0.54 MG/DL (0.60-1.30); POTASSIUM 3.2 MMOL/L (3.6-5.0); TOTAL PROTEIN 7.1 GM/DL (6.4-8.2)
[2021-11-30] MEDS ORDERED: PROMETHAZINE INJ 25 MG/ML (PHENERGAN) AMP IVP ONE (18:45)
[2021-11-30 19:51] LABS: BILIRUBIN,URINE NEGATIVE (NEGATIVE); CLARITY,URINE CLEAR; COLOR,URINE YELLOW; GLUCOSE, URINE (UA) NEGATIVE (NEGATIVE); KETONES,URINE 1+ (NEGATIVE); LEUKOCYTE ESTERASE ,URINE 1+ (NEGATIVE); NITRITE,URINE NEGATIVE (NEGATIVE); PROTEIN,URINE NEGATIVE (NEGATIVE)
[2021-11-30 19:54] LABS: BACTERIA,URINE FEW /HPF
[2021-11-30] MEDS ORDERED: CEPH500T PO (20:05)
[2021-11-30 20:15] VITALS: BP 108/61
[2021-11-30] MEDS ORDERED: CEPHALEXIN 250 MG (KEFLEX) CAP PO ONE (20:15)
== END 2021-11-30 20:23 | disposition home or self-care (01) ==
LOC: EDUNIT# 18:08 → ER FS 18:09
DX: O21.0 Mild hyperemesis gravidarum (principal); O23.42 Unspecified infection of urinary tract in pregnancy, second trimester; E66.9 Obesity, unspecified; Z3A.14 14 weeks gestation of pregnancy
CPT/HCPCS: 36415; 80053; 81000; 83690; 85025; 87088

== ENCOUNTER 2022-10-21 07:43 | Emergency (ER) | payer MEDICAID ==
[~2022-10-21] VITALS: Ht 162.6 cm; Wt 131.5 kg
[~2022-10-21 07:43] MED LIST changes: -DOXY-311 PO; +DOXY-444 PO
--- NOTE | 2022-10-21 07:59 | ED Lower Extremity ---
General Chief Complaint: Lower Extremity Stated Complaint: RT KNEE PAIN History of Present Illness Date Seen by Provider: Oct 21, 2022 Time Seen by Provider: 07:53 Initial Comments 37-year-old female is here with complaints of right knee pain which began yesterday. Patient was sitting on the floor crosslegged for a long period of time when she was sorting and packing up clothes. When she stood up quickly she was unable to flex her knee, and has been walking with an extended leg since then since it hurts to flex her knee. Denies falls, injury, trauma, sensory loss. Allergies and Home Medications Allergies Coded Allergies: hydrocodone (Verified Allergy, Intermediate, Nausea, 07/07/20) Sulfa (Sulfonamide Antibiotics) (Verified Allergy, Unknown, Rash, 07/07/20) Patient Home Medication List Home Medication List Reviewed: Yes Acetaminophen (Tylenol Extra Strength) 500 Mg Tablet, 1,000 MG PO Q8H PRN for PAIN-MILD (1-4), (Reported) Entered as Reported by: DONYA CLINTON on 08/14/20 0947 Amoxicillin/Potassium Clav (Augmentin 875-125 Tablet) 1 Each Tablet, 1 EACH PO BID Prescribed by: MINERVA PAINTER on 08/14/20 1023 Cephalexin (Cephalexin) 500 Mg Tablet, 500 MG PO QID Prescribed by: ROMEO WHITFIELD on 11/30/212004 Doxycycline Monohydrate (Doxycycline Monohydrate) 100 Mg Capsule, 100 MG PO BID Prescribed by: MINERVA PAINTER on 08/14/20 1023 Mupirocin (Mupirocin) 22 Gm Oint...g., 1 APPLIC TP TID, (Reported) Entered as Reported by: DONYA CLINTON on 08/14/20 0945 Review of Systems Constitutional: no symptoms reported EENTM: no symptoms reported Respiratory: no symptoms reported Cardiovascular: no symptoms reported Gastrointestinal: no symptoms reported Genitourinary: no symptoms reported Musculoskeletal: joint pain Skin: no symptoms reported Psychiatric/Neurological: No Symptoms Reported Past Yuuadnl-Vnerju-Betvjm Hx Immunizations Up To Date First/Initial COVID19 Vaccinat: March 2021 Second COVID19 Vaccination Brian: March 2021 Seasonal Allergies Seasonal Allergies: No Past Medical History Surgeries: Yes Adenoidectomy, Tonsillectomy Respiratory: No Cardiac: No Neurological: No Reproductive Disorders: Yes Female Reproductive Disorders: Polycystic Ovarian Dis Genitourinary: No Gastrointestinal: No Musculoskeletal: No Endocrine: No HEENT: No Cancer: No Psychosocial: No Integumentary: No Blood Disorders: No Family Medical History FH: anemia 19 MOTHER Hodgkin's lymphoma G8 BROTHER Kidney disease 19 FATHER Uterine fibroid 19 MOTHER Uterine fibroid 19 MOTHER No Pertinent Family Hx Physical Exam Vital Signs Vital Signs - First Documented 10/21/22 07:47 Temp 36.5 Pulse 102 Resp 16 B/P (MAP) 131/85 (100) O2 Delivery Room Air Capillary Refill : Height, Weight, BMI Height: '" Weight: lbs. oz. kg; 310.00 BMI Method: General Appearance: WD/WN, no apparent distress HEENT: PERRL/EOMI Neck: full range of motion Hips: bilateral hip non-tender, bilateral hip normal inspection, bilateral hip normal range of motion, bilateral hip no evidence of injury Legs: bilateral leg non-tender, bilateral leg normal inspection, bilateral leg normal range of motion, bilateral leg no evidence of injury Knees: right knee normal inspection (Patient is more comfortable with the knee in the extended position. N/V bundle intact), right knee normal range of motion (She has normal range of motion however it is painful to do so), right knee no evidence of injury, right knee soft tissue tenderness, right knee swelling (Mild) Ankles: bilateral ankle non-tender, bilateral ankle normal inspection, bilateral ankle normal range of motion, bilateral ankle no evidence of injury Neurologic/Psychiatric: no motor/sensory deficits, alert, normal mood/affect, oriented x 3 Skin: normal color Progress/Results/Core Measures Results/Orders My Orders Orders - BOY BERNAL MD Knee 3 View Right (10/21/22 07:49) Ketorolac Injection (Toradol Injection) (10/21/22 08:00) Medications Given in ED Current Medications Medications Dose Ordered Sig/Quentin Route Start Time Stop Time Status Last Admin Dose Admin Ketorolac Tromethamine 30 mg ONCE ONCE IM 10/21/22 08:00 10/21/22 08:01 DC 10/21/22 08:22 30 MG Vital Signs/I&O 10/21/22 07:47 Temp 36.5 Pulse 102 Resp 16 B/P (MAP) 131/85 (100) O2 Delivery Room Air Progress Progress Note : Progress Note 1. RIGHT KNEE PAIN: POSSIBLE SUBLUXATED KNEE, 1st TIME OCCURRENCE: - XR RIGHT KNEE: see report - Toradol injection, pt reports improvement in pain after injection -Ruled out fracture, dislocation. -Advised NSAID for pain, and Tylenol for breakthrough pain. Take with food. Ice application advised for the next 48 hours, approximately 20 minutes at a time. Advised elevation of the leg -Advised Ortho follow-up KRISTA within the next 5 days. -Knee brace given -The patient was seen in the ED, and treated appropriately to presentation at a specific point in time. Patient is informed that there is a possibility that disease and illness can evolve and change in acuity rapidly or slowly after patient is discharged from the ER. Precautionary advice given to the patient for immediate return to ER if symptoms worsen or do not resolve, and to seek emergency care sooner rather than later. Pt also advised on the importance of PCP follow up and compliance with management and follow up plan with PCP and/or specialist, as this is part of the management plan. Pt verbally expressed unders tanding. Diagnostic Imaging Diagonstic Imaging: Xray Plain Films/CT/US/NM/MRI: knee Comments NAME: JATINDER ESCOBAR [facility] REC#: [id number] PT STATUS: REG ER : 1985 PHYSICIAN: BOY BERNAL MD ADMIT DATE: 10/21/22/ER FS Draft Date of Exam:10/21/22 KNEE 3 VIEW RIGHT EXAM: KNEE 3 VIEW RIGHT INDICATION: Right knee pain. COMPARISON: 10/21/2022. FINDINGS: The patella appears laterally subluxed on one of the 2 provided AP images. No fractures. Soft tissue shadows are unremarkable. IMPRESSION: The patella appears laterally subluxed on one of the 2 provided AP images. This may be artifactual. Recommend correlation with clinical findings. No fractures. Dictated on workstation # [id number] Dict: 10/21/22807 Trans: 10/21/2228 [facility] [id number] Interpreted by: DERICK BAER MD Electronically signed by: Departure Impression Primary Impression: Lateral subluxation of right patella, initial encounter Disposition: HOME, SELF-CARE Condition: Stable Departure-Patient Inst. Referrals: JENSEN BAUM (PCP) Primary Care Physician [facility] (Family) Primary Care Physician JOSE MICHAELS MD Patient Instructions: Patellar Tendon Strain Exercises, Quadriceps and Patellar Tendon Injuries Add. Discharge Instructions: -Advised NSAID for pain, and Tylenol for breakthrough pain. Take with food. Ice application advised for the next 48 hours, approximately 20 minutes at a time. Advised elevation of the leg -Advised Ortho follow-up KRISTA within the next 5 days, Dr Michaels's office -Knee brace given All discharge instructions reviewed with patient and/or family. Voiced understanding. BOY BERNAL MD Oct 21, 2022 07:59
[2022-10-21] MEDS ORDERED: KETOROLAC 30 MG/ML VIAL IM ONE (08:00)
--- NOTE | 2022-10-21 08:29 | Diagnostic Imaging Report ---
EXAM: KNEE 3 VIEW RIGHT INDICATION: Right knee pain. COMPARISON: 10/21/2022. FINDINGS: The patella appears laterally subluxed on one of the 2 provided AP images. No fractures. Soft tissue shadows are unremarkable. IMPRESSION: The patella appears laterally subluxed on one of the 2 provided AP images. This may be artifactual. Recommend correlation with clinical findings. No fractures. Dictated by: Dictated on workstation # [id number]
[2022-10-21 09:02] VITALS: BP 136/92
== END 2022-10-21 09:02 | disposition home or self-care (01) ==
LOC: EDUNIT# 07:43 → ER FS 07:45
DX: S83.011A Lateral subluxation of right patella, initial encounter (principal); X58.XXXA Exposure to other specified factors, initial encounter; Z88.5 Allergy status to narcotic agent
CPT/HCPCS: 73562

== ENCOUNTER → 2022-10-25 | Outpatient (CLI) | payer MEDICAID ==
--- NOTE | 2022-10-25 16:16 | Diagnostic Imaging Report ---
INDICATION: Subluxation of the knee. COMPARISON: 10/21/2022 TECHNIQUE: 4 radiographs of the right knee dated 10/25/2022. FINDINGS: No acute fracture or dislocation. No destructive osseous process. Minimal medial joint space narrowing. The lateral compartment is well-maintained. Mild narrowing of the medial patellofemoral joint space with associated osteophyte formation. Moderate-size knee joint effusion has developed since the prior examination. No suspicious radiopaque foreign body. IMPRESSION: Interval development of a moderate-sized knee joint effusion. Minimal joint space narrowing, as described above. No patellar dislocation noted on this examination with a prominent osteophyte associated with the medial aspect of the patella. Should there remain clinical concern, further evaluation with MRI would be recommended, particularly given interval development of the moderate-sized knee joint effusion. Dictated by: Dictated on workstation # [id number]
== END ==
LOC: RAD FS 12:48
PROVIDERS: ATTEND Nurse Practitioner
DX: S83.191A Other subluxation of right knee, initial encounter (principal); X58.XXXA Exposure to other specified factors, initial encounter
CPT/HCPCS: 73564

== ENCOUNTER 2023-01-21 09:29 | Emergency (ER) | payer MEDICAID ==
[~2023-01-21] VITALS: Ht 162 cm; Wt 137.0 kg
[2023-01-21 09:36] VITALS: BP 174/69
[2023-01-21] MEDS ORDERED: CEFD300C3 PO (09:51)
[2023-01-21] MEDS ORDERED: KETO10TA PO (09:52)
--- NOTE | 2023-01-21 09:52 | ED EENT ---
History of Present Illness General Chief Complaint: Ear Problems Stated Complaint: FACIAL SWELLING; LT EAR PAIN Nursing Triage Note: Patient has presented to ER with cc of ongoing left ear pain. Patient states that she was seen in urgent care yesterday and started on ear drop antibiotics but this morning the swelling to her ear is worse. She has taken some tyelnol and ibuprofen for the pain. Source: patient Exam Limitations: no limitations History of Present Illness Date Seen by Provider: Jan 21, 2023 Time Seen by Provider: 09:32 Initial Comments 37-year-old female presents emergency department today for left ear pain. Symptoms started mildly on Friday, really began on Friday to hurt more. No drainage. She was seen yesterday in the walk-in clinic and started on Ciprodex otic for otitis externa. She denies any fevers or chills but feels like her entire left face is swollen and is painful. All other systems reviewed and negative except documented per HPI. Voice recognition software was used to help create this chart Allergies and Home Medications Allergies Coded Allergies: hydrocodone (Verified Allergy, Intermediate, Nausea, 07/07/20) Sulfa (Sulfonamide Antibiotics) (Verified Allergy, Unknown, Rash, 07/07/20) Patient Home Medication List Home Medication List Reviewed: Yes Acetaminophen (Tylenol Extra Strength) 500 Mg Tablet, 1,000 MG PO Q8H PRN for PAIN-MILD (1-4), (Reported) Entered as Reported by: DONYA CLINTON on 08/14/20 0991 Amoxicillin/Potassium Clav (Augmentin 875-125 Tablet) 1 Each Tablet, 1 EACH PO BID Prescribed by: MINERVA PAINTER on 08/14/20 1023 Cephalexin (Cephalexin) 500 Mg Tablet, 500 MG PO QID Prescribed by: ROMEO WHITFIELD on 11/30/212004 Doxycycline Monohydrate (Doxycycline Monohydrate) 100 Mg Capsule, 100 MG PO BID Prescribed by: MINERVA PAINTER on 08/14/20 1023 Mupirocin (Mupirocin) 22 Gm Oint...g., 1 APPLIC TP TID, (Reported) Entered as Reported by: DONYA CLINTON on 08/14/20 0945 Review of Systems Review of Systems Constitutional: see HPI Past [id number] Hx Patient Social History Tobacco Use?: No Use of E-Cig and/or Vaping dev: No Substance use?: No Alcohol Use?: No Pt feels they are or have been: No Immunizations Up To Date First/Initial COVID19 Vaccinat: March 2021 Second COVID19 Vaccination Brian: March 2021 Third COVID19 Vaccination Date: March 2021 Seasonal Allergies Seasonal Allergies: No Past Medical History Surgeries: Yes Adenoidectomy, Tonsillectomy Respiratory: No Cardiac: No Neurological: No Reproductive Disorders: Yes Female Reproductive Disorders: Polycystic Ovarian Dis Genitourinary: No Gastrointestinal: No Musculoskeletal: No Endocrine: No HEENT: No Cancer: No Psychosocial: No Integumentary: No Blood Disorders: No Family Medical History FH: anemia 19 MOTHER Hodgkin's lymphoma G8 BROTHER Kidney disease 19 FATHER Uterine fibroid 19 MOTHER Uterine fibroid 19 MOTHER No Pertinent Family Hx Physical Exam Vital Signs Vital Signs - First Documented 01/21/23 09:36 Temp 36.7 Pulse 83 Resp 16 B/P (MAP) 174/69 (104) Pulse Ox 100 O2 Delivery Room Air Height, Weight, BMI Height: '" Weight: lbs. oz. kg; 52.00 BMI Method: General Appearance: WD/WN, no apparent distress Eyes: bilateral eye normal inspection, bilateral eye PERRL, bilateral eye EOMI Ears: right ear canal normal, right ear TM normal; left ear auricle normal, left ear other (Left ear canal is edematous, erythematous. There are some purulent material mild tenderness anterior to the ear sounds like swelling.) Nose: normal inspection Mouth/Throat: normal mouth inspection, pharynx normal Neck: non-tender, full range of motion, supple, normal inspection Cardiovascular: regular rate, rhythm, no murmur Respiratory: chest non-tender, lungs clear, normal breath sounds Progress/Results/Core Measures Results/Orders My Orders Orders - ALEX SANCHEZ DO Ketorolac Injection (Toradol Injection) (01/21/23 10:00) Vital Signs/I&O 01/21/23 09:36 Temp 36.7 Pulse 83 Resp 16 B/P (MAP) 174/69 (104) Pulse Ox 100 O2 Delivery Room Air Blood Pressure Mean: 104 Departure Communication (Admissions) Patient is hemodynamically stable. She has clear otitis externa with some mild facial swelling anterior to the ear. No posterior swelling to indicate mastoiditis at this time. We will go ahead and add oral antibiotics for a "antibiotic drops. We will give her Toradol in addition for pain control. She is given IM Toradol here and discharged with p.o. antibiotics and Toradol. Impression Primary Impression: Otitis externa Qualified Codes: H60.502 - Unspecified acute noninfective otitis externa, left ear Disposition: HOME, SELF-CARE Condition: Stable Departure-Patient Inst. Referrals: JENSEN BAUM (PCP) Primary Care Physician [facility][1]/DENIZ (Family) Primary Care Physician Patient Instructions: Outer Ear Infection Add. Discharge Instructions: Continue antibiotic drops as previously prescribed. Start oral antibiotics as well. Take the Toradol as needed. Do not take any other anti-inflammatory medications while you are taking this. You may take Tylenol in addition to this. Return to the emergency department for any severe concerns. Follow-up wi th your primary doctor for any nonemergent needs. All discharge instructions reviewed with patient and/or family. Voiced unders tanding. Scripts Ketorolac Tromethamine (Ketorolac Tromethamine) 10 Mg Tablet 10 MG PO TID for Pain for 3 Days, #9 TAB Prov: ALEX SANCHEZ DO 01/21/23 Cefdinir (Cefdinir) 300 Mg Capsule 300 MG PO BID for 10 Days, #20 CAP Prov: ALEX SANCHEZ DO 01/21/23 ALEX SANCHEZ DO Jan 21, 2023 09:52
[2023-01-21] MEDS ORDERED: KETOROLAC 15 MG/ML VIAL IM ONE (10:00)
== END 2023-01-21 09:53 | disposition home or self-care (01) ==
LOC: EDUNIT# 09:29 → ER FS 09:31
DX: H60.92 Unspecified otitis externa, left ear (principal); Z88.2 Allergy status to sulfonamides; Z28.310 Unvaccinated for COVID-19
CPT/HCPCS: 99284